=== PATIENT | female | born 1965 | race Caucasian/White ===

== ENCOUNTER → 2017-01-05 | Outpatient (CLI) | payer MEDICARE, BC ==
--- NOTE | 2017-01-08 07:46 | MM ---
Reason for exam: screening (asymptomatic). Last mammogram was performed 1 year and 3 months ago. History: Patient is postmenopausal and is nulliparous. Family history of premenopausal breast cancer in paternal aunt at age 45. Benign excisional biopsy of the right breast, December 18, 2001. Cyst aspiration of the right breast. Took estrogen for 4 years beginning at age 38. Physical Findings: A clinical breast exam by your physician is recommended on an annual basis and results should be correlated with mammographic findings. MG 3D Screening Mammo W/Cad Bilateral CC and MLO view(s) were taken. Prior study comparison: October 04, 2015, bilateral MG screening mammo w CAD. February 13, 2014, bilateral MG screening mammo w CAD. The breast tissue is almost entirely fat. There is chronic nodularity in the left breast. No significant changes when compared with prior studies. ASSESSMENT: Benign, BI-RAD 2 RECOMMENDATION: Routine screening mammogram of both breasts in 1 year.
== END | disposition home or self-care (01) ==
LOC: RADMAMWWP 14:43
PROVIDERS: ATTEND Family Medicine
DX: Z12.31 Encounter for screening mammogram for malignant neoplasm of breast (principal); Z78.0 Asymptomatic menopausal state; Z87.81 Personal history of (healed) traumatic fracture
CPT/HCPCS: 77063; G0202

== ENCOUNTER → 2018-03-11 | Outpatient (CLI) | payer MEDICARE, BC ==
[2018-03-11 13:52] LABS: Basophils # (A) 0.1 k/uL (0-0.2); Basophils % (A) 2 %; Eosinophils # (A) 0.2 k/uL (0-0.7); Eosinophils % (A) 4 %; HCT 43.6 % (34.0-46.0); Lymphocytes # (A) 2.2 k/uL (1.0-4.8); Lymphocytes % (A) 39 %; MCH 27.4 pg (25.0-35.0); MCV 85.5 fL (80.0-100.0); Mean Platelet Volume 7.1; Monocytes # (A) 0.3 k/uL (0-1.0); Monocytes % (A) 6 %; Neutrophils # (A) 2.6 k/uL (1.3-7.7); Neutrophils % (A) 48 %; Platelet Count 221 k/uL (150-450); RDW 14.4 % (11.5-15.5); WBC 5.5 k/uL (3.8-10.6)
[2018-03-11 14:09] LABS: ALT 23 U/L (9-52); AST 39 U/L (14-36); Albumin 4.5 g/dL (3.5-5.0); Alkaline Phosphatase 80 U/L (38-126); Anion Gap 11 mmol/L; Blood Urea Nitrogen 14 mg/dL (7-17); Calcium 9.6 mg/dL (8.4-10.2); Carbon Dioxide 30 mmol/L (22-30); Chloride 101 mmol/L (98-107); Glucose 92 mg/dL (74-99); HDL Cholesterol 58 mg/dL (40-60); Potassium 4.5 mmol/L (3.5-5.1); Sodium 142 mmol/L (137-145); Total Bilirubin 0.5 mg/dL (0.2-1.3); Total Protein 8.2 g/dL (6.3-8.2); Triglycerides 155 mg/dL (<150)
[2018-03-11 14:15] LABS: LDL Cholesterol,Calculated 272 mg/dL (0-99)
[2018-03-11 14:22] LABS: T4, Free (Free Thyroxine) 0.16 ng/dL (0.78-2.19)
[2018-03-11 14:30] LABS: Cholesterol 361 mg/dL (<200)
== END ==
LOC: LABWHC1 13:06
PROVIDERS: ATTEND Family Medicine
DX: Z00.00 Encounter for general adult medical examination without abnormal findings (principal); E03.9 Hypothyroidism, unspecified; E78.5 Hyperlipidemia, unspecified
CPT/HCPCS: 36415; 80053; 80061; 84439; 84443; 85025

== ENCOUNTER → 2018-04-12 | Outpatient (CLI) | payer MEDICARE, BC ==
--- NOTE | 2018-04-12 12:03 | XR ---
EXAMINATION TYPE: XR Hip Complete LT DATE OF EXAM: 04/12/2018 CLINICAL HISTORY: pain TECHNIQUE: AP and frogleg views of the left hip are obtained. COMPARISON: None. FINDINGS: There is no acute fracture/dislocation evident. The joint space appears within normal li mits. The overlying soft tissue appears unremarkable. IMPRESSION: 1. There is no acute fracture or dislocation.ICD 10 NO FRACTURE, INITIAL EVALUATION
--- NOTE | 2018-04-16 09:09 | MM ---
Reason for exam: screening (asymptomatic). Last mammogram was performed 1 year and 3 months ago. History: Patient is postmenopausal and is nulliparous. Family history of premenopausal breast cancer in paternal aunt at age 45. Benign excisional biopsy of the right breast, December 18, 2001. Cyst aspiration of the right breast. Took estrogen for 4 years beginning at age 38. Physical Findings: A clinical breast exam by your physician is recommended on an annual basis and results should be correlated with mammographic findings. MG 3D Screening Mammo W/Cad Bilateral CC and MLO view(s) were taken. Prior study comparison: January 05, 2017, bilateral MG 3d screening mammo w/cad. October 04, 2015, bilateral MG screening mammo w CAD. There are scattered fibroglandular densities. There is chronic nodularity in the left breast. No significant changes when compared with prior studies. ASSESSMENT: Negative, BI-RAD 1 RECOMMENDATION: Routine screening mammogram of both breasts in 1 year.
== END ==
LOC: RADMAMWWP 11:21
PROVIDERS: ATTEND Family Medicine
DX: Z12.31 Encounter for screening mammogram for malignant neoplasm of breast (principal); M25.552 Pain in left hip
CPT/HCPCS: 73502; 77063; 77067

== ENCOUNTER → 2018-05-08 | Outpatient (CLI) | payer MEDICARE, BC ==
--- NOTE | 2018-05-09 00:48 | MR ---
EXAMINATION TYPE: MR lumbar spine wo con DATE OF EXAM: 05/08/2018 COMPARISON: 11/04/1714 HISTORY: Back pain TECHNIQUE: Multiplanar, multisequence images of the lumbar spine were acquired. The lumbar vertebra have normal alignment. There is narrowing at L4-5 disc space. There is small post erior disc bulging at L3-4 L4-5. There is posterior left-sided L2-3 lumbar disc herniation. The neura l foramina are fairly well-maintained. There is no neural foraminal stenosis. Lumbar nerve roots appe ar normal. There is no bony spinal stenosis. There is no compression fracture. There is no lumbar par aspinal mass. Sacroiliac joints appear intact. There is mild to moderate anterior L4-5 lumbar disc he rniation. IMPRESSION: Spondylotic changes with disc bulging and herniation as above. No spinal stenosis. No fracture. No si gnificant change compared to old exam.
== END ==
LOC: RADMRIMAIN 17:20
PROVIDERS: ATTEND Family Medicine
DX: M51.26 Other intervertebral disc displacement, lumbar region (principal)
CPT/HCPCS: 72148

== ENCOUNTER 2018-08-22 11:44 | Observation (INO) | payer MEDICARE, BC ==
[2018-08-22] MEDS ORDERED: ASPIRIN 81 MG PO STA (12:05)
[2018-08-22] MEDS ORDERED: NITROGLYCERIN OINT 1 INCH/GM PACKET TOPICAL STA (12:15)
--- NOTE | 2018-08-22 12:28 | ED ---
Chest Pain HPI - General Chief Complaint: Chest Pain Stated Complaint: INDIGESTION, CHEST PRESSURE Time Seen by Provider: 08/22/18 12:05 Source: patient Mode of arrival: ambulatory Limitations: no limitations - History of Present Illness Initial Comments: 53-year-old female past no history of GERD as well as family history of coronary artery disease <AGE 50, nonsmoker presents today for chief complaint of epigastric pain with burning sensation in chest 2-3 days. Patient states that she has had indigestion however does not feel like her typical GERD symptoms. She states she is also felt mild nausea. She states she also has had on and off a pressure in her chest and tingling down her left arm. She states that she has never experienced this before. Patient denies any history of coronary artery disease she denies history of cancer, she denies hypertension or diabetes. Patient states she has never been a smoker. Patient denies any back pain she denies any dizziness or syncope. Patient denies any shortness of breath at rest. Patient states she feels she might be slightly short of breath upon exertion for the past few weeks. Patient denies any lower extremity edema, recent travel, history of DVT, and surgeries or procedures. Upon arrival patient states she still has tingling in her left arm as well as a mild chest pressure denies any severe chest pain. Upon arrival patient's vital signs within normal limits. Patient does not appear in distress. Negative Heredia sign. - Related Data Home Medications Medication Instructions Recorded Confirmed Esomeprazole Magnesium [NexIUM] 40 mg PO DAILY 08/22/18 08/22/18 Gabapentin [Neurontin] 800 mg PO BID 08/22/18 08/22/18 Imipramine HCl [Tofranil] 200 mg PO HS 08/22/18 08/22/18 Levothyroxine Sodium [Synthroid] 175 mcg PO DAILY 08/22/18 08/22/18 Propranolol HCl [Inderal LA] 60 mg PO DAILY 08/22/18 08/22/18 clonazePAM [KlonoPIN] 2 mg PO TID 08/22/18 08/22/18 Allergies Allergy/AdvReac Type Severity Reaction Status Date / Time bupropion [From Wellbutrin] Allergy Rash/Hives Verified 08/22/18 11:52 Review of Systems ROS Statement: Those systems with pertinent positive or pertinent negative responses have been documented in the HPI. ROS Other: All systems not noted in ROS Statement are negative. EKG Findings - EKG Comments: EKG Findings:: A 12-lead EKG was performed and shows the following: Rate is 77bpm, and rhythm is normal sinus. There are normal QRS complexes and normal R- wave progression. ST segments have no elevation or depression, and UT segments appear normal. UT interval 108 ms, QRS duration 82 ms, QT/QTC 384/434 ms. This is normal sinus. Nonspecific T-wave. abnormality. Interpretted by myslef and attending Dr. Sevilla. repeat EKG: No significant change in comparison with first obtained 13:43. Ventricular rate 79 bpm, P1 174 ms, QRS duration 92 ms, QT/QTc 412/[address] segment elevation or depression. Nonspecific T-wave. Past Medical History Past Medical History: Thyroid Disorder History of Any Multi-Drug Resistant Organisms: None Reported Past Surgical History: Cholecystectomy, Hysterectomy, Tonsillectomy Past Psychological History: Anxiety, Bipolar Smoking Status: Never smoker Past Alcohol Use History: None Reported Past Drug Use History: None Reported General Exam - General Exam Comments Initial Comments: General: The patient is awake and alert, in no distress. No Heredia sign Eye: +3 mm pupils are equal, round and reactive to light, extra-ocular movements are intact. No nystagmus. There is normal conjunctiva bilaterally. No signs of icterus. Ears, nose, mouth and throat: There are moist mucous membranes and no oral lesions. Neck: The neck is supple, there is no tenderness or JVD. Cardiovascular: There is a regular rate and rhythm. No murmur, rub or gallop is appreciated. Respiratory: Lungs are clear to auscultation, respirations are non-labored, breath sounds are equal. No wheezes, stridor, rales, or rhonchi. Lung sounds present in all perez. Gastrointestinal: Soft, non-distended, non-tender abdomen without masses or organomegaly noted. There is no rebound or guarding present. No CVA tenderness. Bowel sounds are unremarkable. Musculoskeletal: Normal ROM, no tenderness. Strength 5/5. Sensation intact. DP pulses equal bilaterally 2+. Neurological: A&O x 3. CN II-XII intact, There are no obvious motor or sensory deficits. Coordination appears grossly intact. Speech is normal. Skin: Skin is warm and dry and no rashes or lesions are noted. No lower extremity edema. No pain or patient the deep venous system. Negative [place]. Psychiatric: Cooperative, appropriate mood & affect, normal judgment. Limitations: no limitations Course Vital Signs 08/22/18 08/22/18 08/22/18 11:52 12:28 12:30 Temperature 97.4 F L Pulse Rate 80 79 79 Respiratory 18 Rate Blood Pressure 115/73 101/75 O2 Sat by Pulse 99 98 100 Oximetry 08/22/18 08/22/18 08/22/18 12:40 12:50 13:00 Temperature Pulse Rate 72 78 Respiratory Rate Blood Pressure 103/70 110/68 110/68 O2 Sat by Pulse 98 100 Oximetry 08/22/18 08/22/18 08/22/18 13:10 13:20 13:30 Temperature Pulse Rate 77 78 79 Respiratory 18 Rate Blood Pressure 107/74 105/70 105/70 O2 Sat by Pulse 100 Oximetry 08/22/18 08/22/18 08/22/18 13:40 13:50 14:00 Temperature Pulse Rate 75 84 80 Respiratory Rate Blood Pressure 110/61 109/73 109/73 O2 Sat by Pulse Oximetry 08/22/18 08/22/18 08/22/18 14:10 14:20 14:30 Temperature 97.4 F L Pulse Rate 80 77 76 Respiratory 18 Rate Blood Pressure 111/73 109/70 109/70 O2 Sat by Pulse 100 Oximetry 08/22/18 08/22/18 14:40 14:50 Temperature Pulse Rate 78 78 Respiratory Rate Blood Pressure 103/58 118/77 O2 Sat by Pulse Oximetry - Reevaluation(s) Reevaluation #1: Patient was evaluated at by provider, myself. I located EKG machine for staff. At this time and had not been performed. Ordered ASA 324 chew. Pt does not need oxygen at this time given normal saturation. Pt will have nitro paste applied to chest for pressure. 08/22/18 12:12 Chest Pain [facility] - Differential Diagnosis ACS, PE, Pericarditis, Pneumonia - [facility] 53-year-old female presenting today for chief complaint of chest tightness left upper kidney paresthesia, and indigestion. Patient's history concerning for acute coronary syndrome. Pt well score 0. Chest x-ray revealed no acute abnormalities. Initial troponin negative. Patient history as well as family history for coronary artery disease in persons less than 30, concerning for possible ACS. At this time at rest patient symptoms persist concerning for unstable angina. We started on low-dose heparin admitted for serial troponin as well as cardiology evaluation. Case discussed in detail Dr. Sevilla revealed EKG at his time there is no concerning T-wave inversion, ST elevation or depression. 35 minutes of critical care time was spent with patient including interpretting EKG, obtaining history, physical examination and reevaluation, discussing case with her provider, discussing case the admitting provider, reviewing radiographic imaging. Patient's vital signs are main stable throughout duration emergency department. Patient case was discussed in detail with the admitting provider by Dr. Sevilla. Patient transferred to the floor in stable condition appearing well aware of all results, patient is agreeable to admission. Critical Care Time Critical Care Time: Yes (history, repeat exams, EKG interpretation, discussing with attending/admit) Total Critical Care Time: 35 Disposition Clinical Impression: Unstable angina Disposition: ADMITTED IP TO THIS [facility] Condition: Stable Is patient prescribed a controlled substance at d/c from ED?: No Time of Disposition: 14:47 Decision to Admit Reason: Admit from EC Decision Date: 08/22/18 Decision Time: 03:15
[2018-08-22 12:30] LABS: Basophils % (A) 1 %; Eosinophils # (A) 0.2 k/uL (0-0.7); Eosinophils % (A) 3 %; HCT 38.8 % (34.0-46.0); Lymphocytes % (A) 32 %; MCH 28.3 pg (25.0-35.0); MCHC 33.5 g/dL (31.0-37.0); MCV 84.3 fL (80.0-100.0); Mean Platelet Volume 6.8; Monocytes # (A) 0.4 k/uL (0-1.0); Monocytes % (A) 7 %; Neutrophils # (A) 3.5 k/uL (1.3-7.7); Neutrophils % (A) 56 %; Platelet Count 225 k/uL (150-450); RDW 13.2 % (11.5-15.5); WBC 6.3 k/uL (3.8-10.6)
[2018-08-22 12:45] LABS: ALT 53 U/L (9-52); AST 112 U/L (14-36); Albumin 4.1 g/dL (3.5-5.0); Alkaline Phosphatase 109 U/L (38-126); Anion Gap 8 mmol/L; Blood Urea Nitrogen 17 mg/dL (7-17); Calcium 9.5 mg/dL (8.4-10.2); Carbon Dioxide 29 mmol/L (22-30); Chloride 101 mmol/L (98-107); Glucose 102 mg/dL (74-99); Magnesium 1.7 mg/dL (1.6-2.3); Potassium 4.6 mmol/L (3.5-5.1); Sodium 138 mmol/L (137-145); Total Bilirubin 0.5 mg/dL (0.2-1.3); Total Protein 7.3 g/dL (6.3-8.2)
--- NOTE | 2018-08-22 12:51 | XR ---
EXAMINATION TYPE: XR chest 2V DATE OF EXAM: 08/22/2018 COMPARISON: NONE HISTORY: Chest pain TECHNIQUE: Frontal and lateral views of the chest are obtained. FINDINGS: Platelike left basilar atelectasis and slight right hemidiaphragm elevation are seen with low lung volumes. There is no focal air space opacity, pleural effusion, or pneumothorax seen. The c ardiac silhouette size is within normal limits. The osseous structures are intact. Surgical clips a re seen within the gallbladder fossa. IMPRESSION: Hypoventilatory lungs with left basilar subsegmental atelectasis.
[2018-08-22 12:59] LABS: INR 0.9 (<1.2); Partial Thromboplastin Time 24.4 sec (22.0-30.0); Prothrombin Time 9.6 sec (9.0-12.0)
[2018-08-22] MEDS ORDERED: NITROGLYCERIN SL TABS 0.4 MG TAB SUBLINGUAL PRN (13:36)
[2018-08-22] MEDS ORDERED: HEPARIN SODIUM,PORCINE 5,000 UNIT/ML 1 ML VIAL IV ONE (14:03)
[2018-08-22] MEDS ORDERED: HEPARIN SODIUM,PORCINE 5,000 UNIT/ML 1 ML VIAL IV PRN (14:03)
[2018-08-22] MEDS ORDERED: HEPARIN SOD,PORK IN 0.45% NACL 25,000 UNIT in 0.45% NACL 1 250ML.BAG IV SCH (14:15)
[2018-08-22] MEDS ORDERED: MAG HYDROX/AL HYDROX/SIMETH 30 ML, HYOSCYAMINE ELIXIR 10 ML, CIMETIDINE HCL 300 MG, LID... PO ONE ×4 (15:16)
--- NOTE | 2018-08-22 15:27 | P.HPIM ---
History of Present Illness H&P Date: 08/22/18 Chief Complaint: Chest pain The patient is a 53-year-old female a past medical history of GERD with hiatal hernia, hypothyroidism, dyslipidemia currently not on medication due to GI upset who presents to the ER via private vehicle with chief complaint of chest pain. Apparently the patient has been having intermittent episodes of a moderate chest pressure described as someone sitting on his chest over the last 3 days, with associated nausea. The patient reports her discomfort is not related to exertion and that there is occasional radiation into her back and her left upper arm with noted numbness and tingling. She denies any history of smoking, denies history of hypertension, she denies any blurry vision, focal weakness, slurred speech. She reports that symptoms today have been different from her typical acid reflux symptoms. She denies any lightheadedness, palpitations or lower extremity swelling,and denies any shortness of breath. The patient denies having any first degree relatives with coronary disease. In the ER the patient was noted to be normotensive, EKG was negative for any suggestive of acute ischemia, troponin was negative at less than 0.012. Chest x-ray indicated hypoventilatory lungs with left basilar subsegmental atelectasis. Patient was given aspirin and nitroglycerin and started heparin drip and recommended for admission to rule out ACS Review of Systems Pertinent positives per HPI all other ROS are negative except as specified Past Medical History Past Medical History: Thyroid Disorder History of Any Multi-Drug Resistant Organisms: None Reported Past Surgical History: Cholecystectomy, Hysterectomy, Tonsillectomy Past Psychological History: Anxiety, Bipolar Smoking Status: Never smoker Past Alcohol Use History: None Reported Past Drug Use History: None Reported Medications and Allergies Home Medications Medication Instructions Recorded Confirmed Type Esomeprazole Magnesium [NexIUM] 40 mg PO DAILY 08/22/18 08/22/18 History Gabapentin [Neurontin] 800 mg PO BID 08/22/18 08/22/18 History Imipramine HCl [Tofranil] 200 mg PO HS 08/22/18 08/22/18 History Levothyroxine Sodium [Synthroid] 175 mcg PO DAILY 08/22/18 08/22/18 History Propranolol HCl [Inderal LA] 60 mg PO DAILY 08/22/18 08/22/18 History clonazePAM [KlonoPIN] 2 mg PO TID 08/22/18 08/22/18 History Allergies Allergy/AdvReac Type Severity Reaction Status Date / Time bupropion [From Wellbutrin] Allergy Rash/Hives Verified 08/22/18 11:52 Physical Exam Vitals: Vital Signs Temp Pulse Resp BP Pulse Ox 08/22/18 14:50 78 118/77 08/22/18 14:40 78 103/58 08/22/18 14:30 97.4 F L 76 18 109/70 100 08/22/18 14:20 77 109/70 08/22/18 14:10 80 111/73 08/22/18 14:00 80 109/73 08/22/18 13:50 84 109/73 08/22/18 13:40 75 110/61 08/22/18 13:30 79 105/70 08/22/18 13:20 78 105/70 08/22/18 13:10 77 18 107/74 100 08/22/18 13:00 78 110/68 08/22/18 12:50 110/68 100 08/22/18 12:40 72 103/70 98 08/22/18 12:30 79 101/75 100 08/22/18 12:28 79 98 08/22/18 11:52 97.4 F L 80 18 115/73 99 Intake and Output 08/22/18 08/22/18 08/22/18 06:59 14:59 22:59 Other: Weight 72.575 kg Constitutional: No acute distress, conversant, pleasant Eyes: Anicteric sclerae, moist conjunctiva, no lid-lag, PERRLA ENMT: NC/AT,Oropharynx clear, no erythema, exudates Neck:Supple, FROM, no masses, or JVD, No carotid bruits; No thyromegaly Lungs: Clear to auscultation, Clear to percussion, Normal respiratory effort, no accessory muscle use Cardiovascular: Heart regular in rate and rhythm, No murmurs, gallops, or rubs no peripheral edema Abdominal: Soft Nontender, nom distended, no guarding, no rebound or rigidity, Normoactive bowel sounds No hepatomegaly, No splenomegaly, No palpable mass No abdominal wall hernia noted Skin: Normal temperature, tone, texture, turgor, No induration No subcutaneous nodules, No rash, lesions, No ulcers Extremities:No digital cyanosis No clubbing, Pedal pulses intact and symmetrical Radial pulses intact and symmetrical Normal gait and station, No calf tenderness Psychiatric: Alert and oriented to person, place and time, Appropriate affect Intact judgement Neuro: Muscles Strength 5/5 in all 4 extremities, Sensation to light touch grossly present throughout, Cranial nerves II-XII grossly intact. No focal sensory deficits Results CBC & Chem 7: 08/22/18 12:15 08/22/18 12:15 Labs: Abnormal Lab Results - Last 24 Hours (Table) 08/22/18 Range/Units 12:15 Glucose 102 H (74-99) mg/dL AST 112 H (14-36) U/L ALT 53 H (9-52) U/L Assessment and Plan (1) Atypical chest pain Current Visit: Yes Status: Acute Code(s): R07.89 - OTHER CHEST PAIN SNOMED Code(s): 298307926 (2) Hyperlipidemia Current Visit: Yes Status: Acute Code(s): E78.5 - HYPERLIPIDEMIA, UNS PECIFIED SNOMED Code(s): 07929966 (3) GERD (gastroesophageal reflux disease) Current Visit: Yes Status: Acute Code(s): K21.9 - GASTRO-ESOPHAGEAL REFLUX DISEASE WITHOUT ESOPHAGITIS SNOMED Code(s): 874476771 (4) Hypothyroidism Current Visit: Yes Status: Acute Code(s): E03.9 - HYPOTHYROIDISM, UNSPECIFIED SNOMED Code(s): 87580553 Plan: Patient is placed in observation anticipate a less than 2 midnight stay with atypical chest pain receptors for coronary disease include age and history of hyperlipidemia, patient is currently hemodynamically stable. Workup with EKG and troponins have been negative so far we'll continue to cycle troponins, will order TSH 2-D echocardiogram and consult cardiology. The patient will be resumed on PPI therapy for GERD resumed on her levothyroxine for her thyroid. We'll continue to follow her course CODE STATUS Full code Anticipated discharge: 1-2 days
[2018-08-22] MEDS: clonazePAM 1 MG TAB PO SCH ×2 (16:51→21:08)
[2018-08-22] MEDS ORDERED: IMIPRAMINE 25 MG TAB PO SCH (21:00)
[2018-08-22] MEDS: GABAPENTIN 400 MG CAP PO SCH (21:08)
[2018-08-22 22:11] LABS: T4, Free (Free Thyroxine) 1.99 ng/dL (0.78-2.19)
[2018-08-23] MEDS ORDERED: LEVOTHYROXINE 100 MCG TAB PO SCH (06:30)
[2018-08-23] MEDS ORDERED: LEVOTHYROXINE 75 MCG TAB PO SCH (06:30)
[2018-08-23 07:10] LABS: Basophils # (A) 0.1 k/uL (0-0.2); Basophils % (A) 1 %; Eosinophils # (A) 0.2 k/uL (0-0.7); Eosinophils % (A) 3 %; HCT 38.1 % (34.0-46.0); HGB 12.2 gm/dL (11.4-16.0); Lymphocytes # (A) 1.5 k/uL (1.0-4.8); Lymphocytes % (A) 24 %; MCH 27.2 pg (25.0-35.0); MCHC 31.9 g/dL (31.0-37.0); MCV 85.3 fL (80.0-100.0); Mean Platelet Volume 7.1; Monocytes # (A) 0.4 k/uL (0-1.0); Monocytes % (A) 7 %; Neutrophils # (A) 3.9 k/uL (1.3-7.7); Neutrophils % (A) 64 %; Platelet Count 197 k/uL (150-450); RBC 4.47 m/uL (3.80-5.40); RDW 13.3 % (11.5-15.5); WBC 6.1 k/uL (3.8-10.6)
--- NOTE | 2018-08-23 07:16 | P.CRDCN ---
History of Present Illness Consult date: 08/23/18 Chief complaint: Chest pain History of present illness: This is a pleasant 53-year-old female patient with past medical history significant for dyslipidemia and history of reflux disease presented to the hospital complaining of chest discomfort. For the last few days, she has been experiencing chest discomfort, in the mid of the chest, as a squeezing sensation, without any radiation to the arm or neck or shoulders and without any associated symptoms of shortness of breath, sweating, but she has been experiencing some nausea feeling. The chest discomfort according to her is not exertional related. Its of variable duration. The EKG showed sinus rhythm without any acute or ischemic changes. 3 sets of enzymes were checked and came in to be unremarkable. The chest x-ray did not show any acute abnormalities. The patient is not aware of any history of coronary artery disease, diabetes, or hypertension. She stated that she does have dyslipidemia and she was started on medications in the past she stopped the medication because it did bother her stomach. She did undergo multiple noncardiac surgery including tonsillectomy, hysterectomy, and gallbladder. The patient does not smoke and does not drink alcohol. There is no significant family history of premature coronary artery disease. Past Medical History Past Medical History: Thyroid Disorder Additional Past Medical History / Comment(s): Hypothyroid, colitis. History of Any Multi-Drug Resistant Organisms: None Reported Past Surgical History: Cholecystectomy, Hysterectomy, Tonsillectomy Additional Past Surgical History / Comment(s): Colonoscopies Additional Past Anesthesia/Blood Transfusion Reaction / Comment(s): Pt states she had a grand mal seizure in recovery room after her cholecystectomy Past Psychological History: Anxiety, Bipolar Smoking Status: Never smoker Past Alcohol Use History: None Reported Past Drug Use History: None Reported - Past Family History Mother Family Medical History: Hyperlipidemia Additional Family Medical History / Comment(s): Mother has heart problems. Father Family Medical History: Hypertension Medications and Allergies Home Medications Medication Instructions Recorded Confirmed Type Esomeprazole Magnesium [NexIUM] 40 mg PO DAILY 08/22/18 08/22/18 History Gabapentin [Neurontin] 800 mg PO BID 08/22/18 08/22/18 History Imipramine HCl [Tofranil] 200 mg PO HS 08/22/18 08/22/18 History Levothyroxine Sodium [Synthroid] 175 mcg PO DAILY 08/22/18 08/22/18 History Propranolol HCl [Inderal LA] 60 mg PO DAILY 08/22/18 08/22/18 History clonazePAM [KlonoPIN] 2 mg PO TID 08/22/18 08/22/18 History Allergies Allergy/AdvReac Type Severity Reaction Status Date / Time bupropion [From Wellbutrin] Allergy Rash/Hives Verified 08/22/18 11:52 Physical Exam Vitals: Vital Signs Temp Pulse Pulse Resp BP BP Pulse Ox 08/23/18 03:50 77 16 08/23/18 03:34 98.4 F 77 16 94/59 95 08/22/18 23:59 79 15 08/22/18 23:21 98.0 F 79 15 96/56 97 08/22/18 20:00 75 15 08/22/18 18:52 97.8 F 75 15 89/53 97 08/22/18 16:30 98 08/22/18 15:20 97.7 F 76 18 111/74 97 08/22/18 14:50 78 118/77 08/22/18 14:40 78 103/58 08/22/18 14:30 97.4 F L 76 18 109/70 100 08/22/18 14:20 77 109/70 08/22/18 14:10 80 111/73 08/22/18 14:00 80 109/73 08/22/18 13:50 84 109/73 08/22/18 13:40 75 110/61 08/22/18 13:30 79 105/70 08/22/18 13:20 78 105/70 08/22/18 13:10 77 18 107/74 100 08/22/18 13:00 78 110/68 08/22/18 12:50 110/68 100 08/22/18 12:40 72 103/70 98 08/22/18 12:30 79 101/75 100 08/22/18 12:28 79 98 08/22/18 11:52 97.4 F L 80 18 115/73 99 Intake and Output 08/22/18 08/23/18 08/23/18 22:59 06:59 14:59 Intake Total 100 Balance 100 Intake: Oral 100 Other: Voiding Method Toilet Toilet # Voids 1 2 - Constitutional General appearance: no acute distress - Respiratory Respiratory: - Cardiovascular Rhythm: regular Results 08/22/18 12:15 08/22/18 12:15 Cardiac Enzymes 08/22/18 08/22/18 08/22/18 Range/Units 12:15 12:15 18:38 AST 112 H (14-36) U/L Troponin I <0.012 <0.012 (0.000-0.034) ng/mL 08/22/18 Range/Units 23:24 AST (14-36) U/L Troponin I <0.012 (0.000-0.034) ng/mL Coagulation 08/22/18 Range/Units 12:15 PT 9.6 (9.0-12.0) sec APTT 24.4 (22.0-30.0) sec CBC 08/22/18 Range/Units 12:15 WBC 6.3 (3.8-10.6) k/uL RBC 4.60 (3.80-5.40) m/uL Hgb 13.0 (11.4-16.0) gm/dL Hct 38.8 (34.0-46.0) % Plt Count 225 (150-450) k/uL Comprehensive Metabolic Panel 08/22/18 Range/Units 12:15 Sodium 138 (137-145) mmol/L Potassium 4.6 (3.5-5.1) mmol/L Chloride 101 (98-107) mmol/L Carbon Dioxide 29 (22-30) mmol/L BUN 17 (7-17) mg/dL Creatinine 0.84 (0.52-1.04) mg/dL Glucose 102 H (74-99) mg/dL Calcium 9.5 (8.4-10.2) mg/dL AST 112 H (14-36) U/L ALT 53 H (9-52) U/L Alkaline Phosphatase 109 (38-126) U/L Total Protein 7.3 (6.3-8.2) g/dL Albumin 4.1 (3.5-5.0) g/dL Current Medications Generic Name Dose Route Start Last Admin Trade Name Freq PRN Reason Stop Dose Admin Aspirin 325 mg 08/23/18 09:00 Aspirin PO DAILY SARA Clonazepam 2 mg 08/22/18 16:00 08/22/18 21:08 Klonopin PO 2 mg TID SARA Administration Gabapentin 800 mg 08/22/18 21:00 08/22/18 21:08 Neurontin PO 800 mg BID SARA Administration Heparin Sodium (Porcine) 0 unit 08/22/18 14:03 Heparin IV PER PROTOCOL PRN Low PTT Protocol Imipramine HCl 200 mg 08/22/18 21:00 08/22/18 21:08 Tofranil PO 200 mg HS SARA Administration Levothyroxine Sodium 100 mcg 08/23/18 06:30 08/23/18 06:20 Synthroid PO 100 mcg DAILY@0630 SARA Administration Levothyroxine Sodium 75 mcg 08/23/18 06:30 08/23/18 06:20 Synthroid PO 75 mcg DAILY@0630 SARA Administration Nitroglycerin 0.4 mg 08/22/18 13:36 Nitrostat SUBLINGUAL Q5M PRN Chest Pain Pantoprazole Sodium 40 mg 08/23/18 07:30 Protonix PO AC-BRKFST SARA Propranolol HCl 60 mg 08/23/18 09:00 Inderal La PO DAILY SARA Intake and Output 08/22/18 08/23/18 08/23/18 22:59 06:59 14:59 Intake Total 100 Balance 100 Intake: Oral 100 Other: Voiding Method Toilet Toilet # Voids 1 2 08/22/18 12:15 08/22/18 12:15 Assessment and Plan Assessment: Assessment #1 intermittent episodes of atypical chest discomfort Plan #1 acute coronary event was ruled out. The cardiac enzymes are unremarkable and the EKG showed no ischemic changes #2 severe underlying coronary artery disease to be ruled out. The probe with the of severe CAD is low giving her age and the absence of risk factors #3 I did recommend proceeding with a stress test. The patient expressed the wishes that she would like to go home. #4 I am getting the patient up and around and if she is chest pain-free she might be able to go home and I will follow-up with her in the office in a few days for stress test as an outpatient. Thank you for allowing us participate in her care.
[2018-08-23 07:29] LABS: Cholesterol 219 mg/dL (<200); HDL Cholesterol 46 mg/dL (40-60); LDL Cholesterol,Calculated 142 mg/dL (0-99); Triglycerides 156 mg/dL (<150)
[2018-08-23] MEDS ORDERED: PANTOPRAZOLE 40 MG TABLET PO SCH (07:30)
[2018-08-23 07:33] VITALS: BP 100/67; PULSE 90; RESP 18; TEMP 98.1
[2018-08-23] MEDS ORDERED: ASPIRIN 325 MG TAB PO SCH (09:00)
[2018-08-23] MEDS ORDERED: PROPRANOLOL LA 60 MG CAP.SA.24H PO SCH (09:00)
--- NOTE | 2018-08-23 09:00 | ECHOF ---
Referral Reason:chest pain MEASUREMENTS -------- HEIGHT: 162.6 cm WEIGHT: 72.6 kg BP: 118/77 RVIDd: 2.4 cm (< 3.3) IVSd: 0.9 cm (0.6 - 1.1) LVIDd: 3.2 cm (3.9 - 5.3) LVPWd: 0.9 cm (0.6 - 1.1) IVSs: 1.4 cm LVIDs: 2.3 cm LVPWs: 1.2 cm LA Diam: 3.3 cm (2.7 - 3.8) LAESV Index (A-L): 26.66 ml/m Ao Diam: 2.8 cm (2.0 - 3.7) AV Cusp: 2.0 cm (1.5 - 2.6) MV EXCURSION: 16.920 mm (> 18.000) MV EF SLOPE: 86 mm/s (70 - 150) EPSS: 0.5 cm MV E Cristian: 0.64 m/s MV DecT: 189 ms MV A Cristian: 0.62 m/s MV E/A Ratio: 1.04 FINDINGS -------- Sinus rhythm. This was a technically good study. The left ventricular size is normal. Left ventricular wall thickness is normal. Overall left vent ricular systolic function is normal with, an EF between 60 - 65 %. The right ventricle is normal in size. Normal LA size by volume 22+/-6 ml/m2. The right atrium is normal in size. The aortic valve is trileaflet and appears structurally normal. The mitral valve is normal. The tricuspid valve appears structurally normal. Trace/mild (physiologic) pulmonic regurgitation. The aortic root size is normal. IVC Not well visulized. There is no pericardial effusion. CONCLUSIONS -------- 1. Sinus rhythm. 2. This was a technically good study. 3. The left ventricular size is normal. 4. Left ventricular wall thickness is normal. 5. Overall left ventricular systolic function is normal with, an EF between 60 - 65 %. 6. The right ventricle is normal in size. 7. Normal LA size by volume 22+/-6 ml/m2. 8. The right atrium is normal in size. 9. The aortic valve is trileaflet and appears structurally normal. 10. The mitral valve is normal. 11. The tricuspid valve appears structurally normal. 12. Trace/mild (physiologic) pulmonic regurgitation. 13. The aortic root size is normal. 14. IVC Not well visulized. 15. There is no pericardial effusion. INSPECTOR CASING: Sahra Shah RDCS
[2018-08-23] MEDS: GABAPENTIN 400 MG CAP PO SCH (09:08)
[2018-08-23] MEDS: clonazePAM 1 MG TAB PO SCH (09:08)
--- NOTE | 2018-08-23 10:23 | P.DS ---
Providers Date of admission: 08/22/18 13:53 Expected date of discharge: 08/23/18 Attending physician: Lisbet Layne DO Consults: 08/22/18 13:36 Consult Physician Urgent Consulting Provider: Zenobia Calero Consult Reason/Comments: chest pain Do you want consulting provider notified?: Yes Primary care physician: Kaila Hernandez MD - Discharge Diagnosis(es) (1) Atypical chest pain Current Visit: Yes Status: Acute (2) Hyperlipidemia Current Visit: Yes Status: Acute (3) GERD (gastroesophageal reflux disease) Current Visit: Yes Status: Acute (4) Hypothyroidism Current Visit: Yes Status: Acute Hospital Course: The patient is a 53-year-old female that was admitted for atypical chest pain to rule out ACS, the patient had minimal risk factors for coronary artery disease including age and history of hyperlipidemia, her initial EKG was negative for any sedation of acute ischemia her initial and subsequent troponins were all negative. Cardiology was also consulted to see the patient and recommended outpatient stress test. It was thought that the patient's chest di scomfort was secondary to underlying and ongoing acid reflux disease in the patient's Nexium was changed to twice a day and she was also started on Pepcid for treatment. She was subsequently discharged home in stable condition and recommended to follow-up with her PCP Dr. Hernandez. This discharge process took approximately 30 minutes Focused exam Cv: Regular rate and rhythm no murmurs or gallops, PMI nondisplaced Pertinent Studies: 2-D echocardiogram showing preserved ejection fraction of 60-65%. Patient Condition at Discharge: Stable Plan - Discharge Summary Discharge Rx Participant: No New Discharge Prescriptions: New Famotidine [Pepcid] 20 mg PO DAILY #30 tablet Continue RX: clonazePAM [KlonoPIN] 2 mg PO TID RX: Propranolol HCl [Inderal LA] 60 mg PO DAILY RX: Levothyroxine Sodium [Synthroid] 175 mcg PO DAILY RX: Imipramine HCl [Tofranil] 200 mg PO HS RX: Gabapentin [Neurontin] 800 mg PO BID Changed RX: Esomeprazole Magnesium [NexIUM] 40 mg PO BID #0 Discharge Medication List RX: Gabapentin [Neurontin] 800 mg PO BID 08/22/18 [History] RX: Imipramine HCl [Tofranil] 200 mg PO HS 08/22/18 [History] RX: Levothyroxine Sodium [Synthroid] 175 mcg PO DAILY 08/22/18 [History] RX: Propranolol HCl [Inderal LA] 60 mg PO DAILY 08/22/18 [History] RX: clonazePAM [KlonoPIN] 2 mg PO TID 08/22/18 [History] Famotidine [Pepcid] 20 mg PO DAILY #30 tablet 08/23/18 [Rx] RX: Esomeprazole Magnesium [NexIUM] 40 mg PO BID #0 08/23/18 [Rx] Follow up Appointment(s)/Referral(s): Mango Machado MD [STAFF PHYSICIAN] - 1 Week Kaila Hernandez MD [Primary Care Provider] - 1-2 days Patient Instructions/Handouts: Heart Healthy Diet (DC), Cholesterol and Your Health (GEN), Lipid Profile (GEN), Mediterranean Diet (DC) Discharge Disposition: HOME SELF-CARE
== END 2018-08-23 10:40 | disposition home or self-care (01) ==
LOC: EC 11:44 → 1SOBS 13:53
PROVIDERS: ADMIT Internal Medicine; ATTEND Internal Medicine
DX: K21.9 Gastro-esophageal reflux disease without esophagitis (principal); K44.9 Diaphragmatic hernia without obstruction or gangrene; G40.409 Other generalized epilepsy and epileptic syndromes, not intractable, without status epilepticus; R07.89 Other chest pain; E03.9 Hypothyroidism, unspecified; E78.5 Hyperlipidemia, unspecified; F31.9 Bipolar disorder, unspecified; K52.9 Noninfective gastroenteritis and colitis, unspecified; F41.9 Anxiety disorder, unspecified; Z79.890 Hormone replacement therapy; Z79.899 Other long term (current) drug therapy; Z88.8 Allergy status to other drugs, medicaments and biological substances; Z90.710 Acquired absence of both cervix and uterus; Z90.49 Acquired absence of other specified parts of digestive tract; Z82.49 Family history of ischemic heart disease and other diseases of the circulatory system
CPT/HCPCS: 99291; 36415; 94760; 93005; 93306; 84439; 80061; 80053; 84443; 83735; 84484; 85025 ×2; 85610; 85730; 71046; G0378 ×2

== ENCOUNTER → 2018-09-25 | Outpatient (CLI) | payer MEDICARE, BC ==
[~2018-09-25] MED LIST: REGADENOSON 0.4 MG/5 ML SYRINGE IV ONE
--- NOTE | 2018-09-25 12:21 | NM ---
EXAMINATION TYPE: NM stress lexiscan cardiolite DATE OF EXAM: 09/25/2018 COMPARISON: NONE HISTORY: Atypical chest pain TECHNIQUE: After the intravenous administration of 10.13 mCi Tc 99m Sestamibi - Cardiolite resting S PECT images acquired 45 minutes post injection. The patient received 0.4mg Lexiscan, 26.2 mCi Tc 99m Sestamibi - Stress images obtained [address] injection FINDINGS: Review of stress and rest SPECT images demonstrates no distinct perfusion abnormality. Gated analysi s shows normal wall motion with an estimated left ventricular ejection fraction of 66 %. TID is withi n normal limits of fluid at 1.07 IMPRESSION: No scintigraphic evidence for reversible ischemia.
--- NOTE | 2018-09-25 12:26 | EST ---
EXERCISE STRESS DATE OF SERVICE: 09/25/2018 AGE: 53 SEX: Female HT: 5'4" WT: 166 pounds PROTOCOL: Lexiscan Cardiolite STAGE: DURATION OF EXERCISE: HEART RATE REST: 88 BLOOD PRESSURE REST: 111/80 MAXIMUM HEART RATE ACHIEVED: 91 MAXIMUM BLOOD PRESSURE: 119/76 85% MPHR: 140 100% MPHR: 165 METS: INDICATIONS: Chest pain. CLINICAL INFORMATION: Lexiscan nuclear study was performed because the patient developed intermittent left bundle branch block pattern. Lexiscan was given over a period of 15 seconds. The peak heart rate of 91 was achieved. Maximum blood pressure 119/76 mmHg was noted. Resting EKG shows normal sinus rhythm alternating with normal conduction and left bundle branch block pattern. During Lexiscan injection, left bundle branch block pattern was noted. No significant ST-segment change from the baseline was noted. FINAL IMPRESSION: This EKG is inconclusive to diagnose ischemia because of the left bundle branch block pattern. The results of the nuclear study will follow. MMJONO / JOSHN: [id number] /
== END ==
LOC: RADNMMAIN 08:03
PROVIDERS: ATTEND Family Medicine
DX: R07.89 Other chest pain (principal)
CPT/HCPCS: 93017; 78452; A9500; J2785

== ENCOUNTER → 2018-10-11 | Outpatient (CLI) | payer MEDICARE, BC | END | disposition home or self-care (01) | LOC: LABWHC1 11:55 | PROVIDERS: ATTEND Psychiatry & Neurology Neurology | DX: R53.1 Weakness (principal) | CPT/HCPCS: 36415; 82550; 85652; 86038 ==

== ENCOUNTER → 2018-10-23 | Outpatient (CLI) | payer MEDICARE, BC | END | disposition home or self-care (01) | LOC: CPPFTMAIN 10:51 | PROVIDERS: ATTEND Family Medicine | DX: J45.909 Unspecified asthma, uncomplicated (principal); G70.00 Myasthenia gravis without (acute) exacerbation | CPT/HCPCS: 94060; 94726; 94729 ==

== ENCOUNTER → 2019-03-28 | Outpatient (CLI) | payer MEDICARE, BC ==
--- NOTE | 2019-03-28 09:05 | XR ---
EXAMINATION TYPE: XR hand complete RT DATE OF EXAM: 03/28/2019 CLINICAL HISTORY: Right hand pain for one week. TECHNIQUE: Frontal, lateral and oblique images of the right hand are obtained. COMPARISON: None. FINDINGS: There is no acute fracture/dislocation evident in the right hand. The joint spaces in the right hand appear within normal limits. The overlying soft tissue appears unremarkable. IMPRESSION: As above.
== END | disposition home or self-care (01) ==
LOC: RADXRMAIN 08:48
PROVIDERS: ATTEND Internal Medicine
DX: M25.541 Pain in joints of right hand (principal)

== ENCOUNTER → 2019-07-28 | Outpatient (CLI) | payer MEDICARE, BC ==
[2019-07-28 11:45] LABS: Albumin 4.3 g/dL (3.5-5.0); Calcium 9.5 mg/dL (8.4-10.2); Potassium 4.8 mmol/L (3.5-5.1); Total Bilirubin 0.4 mg/dL (0.2-1.3); Total Protein 7.6 g/dL (6.3-8.2)
[2019-07-28 12:26] LABS: Basophils # (A) 0.2 k/uL (0-0.2); Basophils % (A) 3 %; Eosinophils # (A) 0.3 k/uL (0-0.7); Eosinophils % (A) 4 %; HCT 42.6 % (34.0-46.0); HGB 13.8 gm/dL (11.4-16.0); Lymphocytes # (A) 1.8 k/uL (1.0-4.8); Lymphocytes % (A) 28 %; MCH 27.6 pg (25.0-35.0); MCHC 32.3 g/dL (31.0-37.0); MCV 85.4 fL (80.0-100.0); Mean Platelet Volume 9.7; Monocytes # (A) 0.5 k/uL (0-1.0); Monocytes % (A) 7 %; Neutrophils # (A) 3.6 k/uL (1.3-7.7); Neutrophils % (A) 56 %; Platelet Count 208 k/uL (150-450); RBC 4.99 m/uL (3.80-5.40); RDW 13.4 % (11.5-15.5); WBC 6.4 k/uL (3.8-10.6)
[2019-07-28 12:51] LABS: T4, Free (Free Thyroxine) 1.34 ng/dL (0.78-2.19)
--- NOTE | 2019-07-28 14:42 | MM ---
Reason for exam: screening (asymptomatic). Last mammogram was performed 1 year and 3 months ago. History: Patient is postmenopausal and is nulliparous. Family history of premenopausal breast cancer in paternal aunt at age 45. Benign excisional biopsy of the right breast, December 18, 2001. Cyst aspiration of the right breast. Took estrogen for 4 years beginning at age 38. Physical Findings: A clinical breast exam by your physician is recommended on an annual basis and results should be correlated with mammographic findings. MG 3D Screening Mammo W/Cad Bilateral CC and MLO view(s) were taken. Prior study comparison: April 12, 2018, bilateral MG 3d screening mammo w/cad. January 05, 2017, bilateral MG 3d screening mammo w/cad. There are scattered fibroglandular densities. No suspicious abnormality. No significant changes when compared with prior studies. ASSESSMENT: Negative, BI-RAD 1 RECOMMENDATION: Routine screening mammogram of both breasts in 1 year.
== END | disposition home or self-care (01) ==
LOC: RADMAMWWP 10:03
PROVIDERS: ATTEND Family Medicine
DX: Z12.31 Encounter for screening mammogram for malignant neoplasm of breast (principal); Z00.00 Encounter for general adult medical examination without abnormal findings
CPT/HCPCS: 77063; 77067; 80053; 80061; 82306; 84439; 84443; 85025

== ENCOUNTER → 2020-02-04 | Outpatient (CLI) | payer MEDICARE, BC ==
[2020-02-04 12:37] LABS: Basophils # (A) 0.1 k/uL (0-0.2); Basophils % (A) 2 %; Eosinophils # (A) 0.3 k/uL (0-0.7); Eosinophils % (A) 5 %; HCT 43.5 % (34.0-46.0); HGB 13.9 gm/dL (11.4-16.0); Lymphocytes # (A) 2.4 k/uL (1.0-4.8); Lymphocytes % (A) 36 %; MCH 27.7 pg (25.0-35.0); MCHC 31.9 g/dL (31.0-37.0); MCV 86.8 fL (80.0-100.0); Mean Platelet Volume 8.3; Monocytes # (A) 0.4 k/uL (0-1.0); Monocytes % (A) 6 %; Neutrophils # (A) 3.2 k/uL (1.3-7.7); Neutrophils % (A) 49 %; Platelet Count 218 k/uL (150-450); RBC 5.01 m/uL (3.80-5.40); RDW 13.1 % (11.5-15.5); WBC 6.6 k/uL (3.8-10.6)
[2020-02-04 20:41] LABS: African American GFR (CKD) 72.9 (60.0-200.0); Albumin 4.4 g/dL (3.80-4.90); Albumin/Globulin Ratio 1.63 (1.60-3.17); Anion Gap 8.2 mmol/L (4.00-12.00); Calcium 9.4 mg/dL (8.7-10.3); Carbon Dioxide 26.8 mmol/L (21.6-31.8); Globulin 2.7 g/dL (1.6-3.3); Non-African American GFR(CKD) 62.9 (60.0-200.0); Potassium 4.7 mmol/L (3.5-5.5); Total Bilirubin 0.2 mg/dL (0.3-1.2); Total Protein 7.1 g/dL (6.2-8.2)
[2020-02-04 20:49] LABS: T4, Free (Free Thyroxine) 1.3 ng/dL (0.80-1.80)
== END | disposition home or self-care (01) ==
LOC: LABWHC1 10:45
PROVIDERS: ATTEND Family Medicine
DX: E03.9 Hypothyroidism, unspecified (principal); R10.30 Lower abdominal pain, unspecified
CPT/HCPCS: 36415; 80053; 84439; 84443; 84481; 85025

== ENCOUNTER 2020-05-16 12:35 | Emergency (ER) | payer MEDICARE, BC ==
[2020-05-16 12:43] VITALS: RESP 18
[2020-05-16] MEDS ORDERED: KETOROLAC 15 MG/ML 1 ML VIAL IVP STA (13:07)
[2020-05-16] MEDS ORDERED: ORPHENADRINE 30 MG/ML 2 ML VIAL IVP STA (13:07)
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
[2020-05-16 13:39] LABS: Basophils # (A) 0.1 k/uL (0-0.2); Basophils % (A) 2 %; Eosinophils # (A) 0.2 k/uL (0-0.7); Eosinophils % (A) 3 %; HCT 39.9 % (34.0-46.0); HGB 13.1 gm/dL (11.4-16.0); Lymphocytes # (A) 2.4 k/uL (1.0-4.8); Lymphocytes % (A) 37 %; MCH 28.1 pg (25.0-35.0); MCHC 32.9 g/dL (31.0-37.0); MCV 85.4 fL (80.0-100.0); Mean Platelet Volume 7.3; Monocytes # (A) 0.4 k/uL (0-1.0); Monocytes % (A) 6 %; Neutrophils # (A) 3.2 k/uL (1.3-7.7); Neutrophils % (A) 51 %; Platelet Count 180 k/uL (150-450); RBC 4.67 m/uL (3.80-5.40); RDW 13.4 % (11.5-15.5); WBC 6.3 k/uL (3.8-10.6)
[2020-05-16 13:49] LABS: INR 0.9 (<1.2); Partial Thromboplastin Time 24.3 sec (22.0-30.0); Prothrombin Time 9.9 sec (9.0-12.0)
[2020-05-16 13:55] LABS: Albumin 4.1 g/dL (3.5-5.0); Calcium 9.2 mg/dL (8.4-10.2); Potassium 4.1 mmol/L (3.5-5.1); Total Bilirubin 0.4 mg/dL (0.2-1.3); Total Protein 7.2 g/dL (6.3-8.2)
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
[2020-05-16 15:17] VITALS: BP 123/82; PULSE 83; TEMP 98.2
== END 2020-05-16 15:17 | disposition home or self-care (01) ==
LOC: EC 12:35
DX: S16.1XXA Strain of muscle, fascia and tendon at neck level, initial encounter (principal); R51.9 Headache, unspecified; E03.9 Hypothyroidism, unspecified; F41.9 Anxiety disorder, unspecified; F31.9 Bipolar disorder, unspecified; Z79.890 Hormone replacement therapy; Z79.899 Other long term (current) drug therapy; Z88.8 Allergy status to other drugs, medicaments and biological substances; V43.52XA Car driver injured in collision with other type car in traffic accident, initial encounter; Y92.410 Unspecified street and highway as the place of occurrence of the external cause
CPT/HCPCS: 36415; 93005; 80053; 82550; 84484; 85025; 85610; 85730; 72070; 72170; 72125; 70450; 99284; 96374; 96375; J2360; J1885

== ENCOUNTER → 2020-05-24 | Outpatient (CLI) | payer OTHER, MEDICARE, BC ==
--- NOTE | 2020-05-25 10:52 | XR ---
EXAMINATION TYPE: XR lumbosacral spine min 4V DATE OF EXAM: 05/24/2020 COMPARISON: 07/24/2014 HISTORY: Left lumbar radiculopathy TECHNIQUE: Five-view lumbar spine FINDINGS: Scoliosis present with convexity to the right centered at L3. No spondylolytic defects are evident. Vertebral body heights are preserved. Disc heights appear preserved. IMPRESSION: 1. Scoliosis.
== END | disposition home or self-care (01) ==
LOC: RADXRMAIN 16:22
PROVIDERS: ATTEND Family Medicine
DX: M41.86 Other forms of scoliosis, lumbar region (principal)
CPT/HCPCS: 72110

== ENCOUNTER → 2020-08-17 | Outpatient (CLI) | payer BC, MEDICARE ==
--- NOTE | 2020-08-18 08:46 | MM ---
Reason for exam: additional evaluation requested from prior study. Last mammogram was performed 1 year and 1 month ago. History: Patient is postmenopausal and is nulliparous. Family history of premenopausal breast cancer in paternal aunt at age 45. Benign excisional biopsy of the right breast, December 18, 2001. Cyst aspiration of the right breast. Took estrogen for 4 years beginning at age 38. Physical Findings: Nurse did not find any significant physical abnormalities on exam. MG 3D Diag Mammo W/Cad ARJUN Bilateral CC and MLO view(s) were taken. Prior study comparison: July 28, 2019, bilateral MG 3d screening mammo w/cad. April 12, 2018, bilateral MG 3d screening mammo w/cad. There are scattered fibroglandular densities. No significant new findings when compared with previous films. These results were verbally communicated with the patient and result sheet given to the patient on 08/17/20. ASSESSMENT: Benign, BI-RAD 2 RECOMMENDATION: Routine screening mammogram of both breasts in 1 year. Manage on a clinical basis with regard to patient's area of concern.
--- NOTE | 2020-08-18 08:47 | USB ---
Reason for exam: additional evaluation requested from prior study. History: Patient is postmenopausal and is nulliparous. Family history of premenopausal breast cancer in paternal aunt at age 45. Benign excisional biopsy of the right breast, December 18, 2001. Cyst aspiration of the right breast. Took estrogen for 4 years beginning at age 38. US Breast Limited RT Right limited breast ultrasound including focal area of concern, retroareolar and axilla demonstrates no cystic or solid lesion seen. These results were verbally communicated with the patient and result sheet given to the patient on 08/17/20. ASSESSMENT: Negative, BI-RAD 1 RECOMMENDATION: Routine screening mammogram of both breasts in 1 year.
== END | disposition home or self-care (01) ==
LOC: RADMAMWWP 14:52
PROVIDERS: ATTEND Family Medicine
DX: N63.11 Unspecified lump in the right breast, upper outer quadrant (principal)
CPT/HCPCS: 77066; 76642; G0279; 77062

== ENCOUNTER → 2020-08-23 | Outpatient (CLI) | payer MEDICARE, OTHER ==
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
== END | disposition home or self-care (01) ==
CPT/HCPCS: 99211

== ENCOUNTER 2020-09-09 08:37 | Day surgery (SDC) | payer MEDICARE, OTHER ==
[2020-09-07 16:00] VITALS: BMI 27.4
[~2020-09-09 08:37] MED LIST changes: +LACTATED RINGERS 1,000 ML IV SCH; -REGADENOSON 0.4 MG/5 ML SYRINGE IV ONE
[2020-09-09 08:53] VITALS: RESP 16; TEMP 97
[2020-09-09] MEDS ORDERED: fentaNYL (PF) 50 MCG/ML 2 ML AMP ONE (09:20)
[2020-09-09] MEDS ORDERED: IOPAMIDOL M200 10 ML VIAL ONE (09:20)
[2020-09-09] MEDS ORDERED: methylPREDNISolone ACETATE 40 MG/ML 1 ML VIAL ONE (09:20)
[2020-09-09] MEDS ORDERED: MIDAZOLAM 2 MG/2 ML VIAL ONE (09:20)
--- NOTE | 2020-09-09 09:34 | P.PCN ---
Date of Procedure: 09/09/20 Procedure(s) Performed: PREOPERATIVE DIAGNOSIS: 1- Lumbar herniated Disc Diseases 2-Lumbar radiculopathy POSTOPERATIVE DIAGNOSIS: Same as preop diagnosis. PROCEDURE 1. Lumbar epidural steroid injection under fluoroscopic guidance at the L4-5 level. (Fluoroscopy imaging was available in radiology department) 2. Lumbar epidurogram. ANESTHESIA: Local with 1% lidocaine 3 ml and , moderate sedation with intravenous Versed 2 mg ,and fentanyle 100 Mcg EBL: Minimal PROCEDURE INDICATION: The patient with low back pain and radiculitis symptoms unresponsive to conservative treatment. Fluoroscopy was used to optimize visualization of the needle placement and to maximize safety. PROCEDURE DESCRIPTION / TECHNIQUE: The patient was seen and identified in the preoperative area. Risks, benefits, complications including but not limited to infections ,bleeding ,allergic reaction to the medications ,nerve damage and not complete pain releife , and alternatives were discussed with the patient. The patient agreed to proceed with the procedure and signed the consent. IV was started, and vital signs were stable. Patient was taken to the OR and time out was completed. The patient was placed in the prone position on procedure table and a pillow was placed under the abdomen to reduce lumbar lordosis. The lumbosacral area was prepped and draped in the usual sterile fashion.ere closely monitored during the procedure. Conscious sedation was used during the procedure to decrease patients anxiety. Vital signs was monitered during the entire procedure. Using anterior-posterior fluoroscopy, the L4-5 ( left paramedial ) interlaminar space was identified and the skin over this site was marked and then infiltrated with 1% lidocaine subcutaneously. Subsequently, a 20-gauge Tuohy epidural needle was inserted and advanced toward the epidural space using the ``Loss of resistance technique and guided by AP and lateral fluoroscopy. The correct needle position in the epidural space was verified with the injection of 2 mL of the water soluble contrast dye Isovue 200 contrast and observing an excellent epidurogram with the epidural spread of the dye, after negative aspiration for blood and CSF and in the absence of paresthesias. Again after negative aspiration, a 6 ml mixture containing 80 mg of Depo-medrol , and 2 ml of preservative free Normal Saline, and 2 ml of preservative free lidocaine 1% solution was injected and a washout of epidurogram was seen. Needle was withdrawn intact, skin was cleansed, and bandages were applied. COMPLICATIONS: None DISPOSITION / PLANS: The patient was placed in a supine position and transferred to the recovery area in a stable condition for observation. There was no evidence of lower extremity motor or sensory deficit after the procedure. Patient was discharged from the recovery room after meeting discharge criteria. Home discharge instructions were given to the patient by the staff. The patient was reexamined prior to discharge. The patient will schedule a follow up in the clinic in 2-4 weeks.
[2020-09-09] MEDS ORDERED: IV FLUID CONTINUATION 1,000 ML IV ONE (09:38)
[2020-09-09 10:44] VITALS: BP 106/73; PULSE 84
--- NOTE | 2020-09-10 10:52 | FL ---
EXAMINATION TYPE: FL guided pain mgmt statistic DATE OF EXAM: 09/09/2020 HISTORY: Fluoroscopy time 4 seconds of fluoroscopy provided. IMPRESSION: 1. Fluoroscopy time.
== END 2020-09-09 10:57 | disposition home or self-care (01) ==
LOC: ORPAIN 08:37
PROVIDERS: ATTEND Specialist
DX: M51.16 Intervertebral disc disorders with radiculopathy, lumbar region (principal); Z88.8 Allergy status to other drugs, medicaments and biological substances
CPT/HCPCS: 62323; J2250; J1030; J3010; Q9966

== ENCOUNTER 2020-10-19 10:05 | Day surgery (SDC) | payer MEDICARE, OTHER ==
[2020-09-30 09:40] VITALS: BMI 27.1
[2020-10-19 10:32] VITALS: TEMP 97.5
[2020-10-19] MEDS ORDERED: LACTATED RINGERS 1,000 ML IV ONE (10:32)
[2020-10-19] MEDS ORDERED: MIDAZOLAM 2 MG/2 ML VIAL ONE (10:38)
[2020-10-19] MEDS ORDERED: IOPAMIDOL M200 10 ML VIAL ONE (10:38)
[2020-10-19] MEDS ORDERED: methylPREDNISolone ACETATE 40 MG/ML 1 ML VIAL ONE (10:38)
[2020-10-19] MEDS ORDERED: fentaNYL (PF) 50 MCG/ML 2 ML AMP ONE (10:38)
--- NOTE | 2020-10-19 10:59 | P.PCN ---
Date of Procedure: 10/19/20 Procedure(s) Performed: PREOPERATIVE DIAGNOSIS: 1- Lumbar herniated Disc Diseases 2-Lumbar radiculopathy POSTOPERATIVE DIAGNOSIS: Same as preop diagnosis. PROCEDURE 1. Lumbar epidural steroid injection under fluoroscopic guidance at the L4-5 level. (Fluoroscopy imaging was available in radiology department) 2. Lumbar epidurogram. ANESTHESIA: Local with 1% lidocaine 3 ml and , moderate sedation with intravenous Versed 2 mg ,and fentanyle 100 Mcg EBL: Minimal PROCEDURE INDICATION: The patient with low back pain and radiculitis symptoms unresponsive to conservative treatment. Fluoroscopy was used to optimize visualization of the needle placement and to maximize safety. PROCEDURE DESCRIPTION / TECHNIQUE: The patient was seen and identified in the preoperative area. Risks, benefits, complications including but not limited to infections ,bleeding ,allergic reaction to the medications ,nerve damage and not complete pain releife , and alternatives were discussed with the patient. The patient agreed to proceed with the procedure and signed the consent. IV was started, and vital signs were stable. Patient was taken to the OR and time out was completed. The patient was placed in the prone position on procedure table and a pillow was placed under the abdomen to reduce lumbar lordosis. The lumbosacral area was prepped and draped in the usual sterile fashion.ere closely monitored during the procedure. Conscious sedation was used during the procedure to decrease patients anxiety. Vital signs was monitered during the entire procedure. Using anterior-posterior fluoroscopy, the L4-5 ( left paramedial ) interlaminar space was identified and the skin over this site was marked and then infiltrated with 1% lidocaine subcutaneously. Subsequently, a 20-gauge Tuohy epidural needle was inserted and advanced toward the epidural space using the ``Loss of resistance technique and guided by AP and lateral fluoroscopy. The correct needle position in the epidural space was verified with the injection of 2 mL of the water soluble contrast dye Isovue 200 contrast and observing an excellent epidurogram with the epidural spread of the dye, after negative aspiration for blood and CSF and in the absence of paresthesias. Again after negative aspiration, a 6 ml mixture containing 80 mg of Depo-medrol , and 2 ml of preservative free Normal Saline, and 2 ml of preservative free lidocaine 1% solution was injected and a washout of epidurogram was seen. Needle was withdrawn intact, skin was cleansed, and bandages were applied. COMPLICATIONS: None DISPOSITION / PLANS: The patient was placed in a supine position and transferred to the recovery area in a stable condition for observation. There was no evidence of lower extremity motor or sensory deficit after the procedure. Patient was discharged from the recovery room after meeting discharge criteria. Home discharge instructions were given to the patient by the staff. The patient was reexamined prior to discharge. The patient will schedule a follow up in the clinic in 2-4 weeks.
[2020-10-19] MEDS ORDERED: IV FLUID CONTINUATION 600 ML IV ONE (11:12)
--- NOTE | 2020-10-19 11:13 | FL ---
Fluoroscopy INDICATION: Pain FINDINGS: Fluoroscopy time: 2 seconds. Images obtained: 1. IMPRESSIONS: 1. Documentation of fluoroscopy.
[2020-10-19 11:35] VITALS: BP 106/65; PULSE 82; RESP 16
== END 2020-10-19 12:06 | disposition home or self-care (01) ==
LOC: ORPAIN 10:05
PROVIDERS: ATTEND Specialist
DX: M51.16 Intervertebral disc disorders with radiculopathy, lumbar region (principal); Z88.8 Allergy status to other drugs, medicaments and biological substances
CPT/HCPCS: 62323; J2250; J1030; J3010; Q9966; 99152

== ENCOUNTER → 2020-11-01 | Outpatient (CLI) | payer MEDICARE, OTHER ==
[2020-11-01 09:38] VITALS: BP 113/78; PULSE 81; RESP 18; TEMP 97.8
--- NOTE | 2020-11-01 10:09 | P.PN ---
Subjective Progress Note Date: 11/01/20 This is a follow-up visit for this 55 years old female with a chronic history of severe low back pain with radiation to the left lower extremity associated with numbness and tingling sensation, they closed with lumbar radiculopathy and lumbar degenerative disc disease, status post lumbar epidural steroid injection 2, she reported that her numbness and tingling sensation improved significantly and currently she is having localized severe low back pain, the intensity of the pain increases with her activity and interfere with her quality of life, is constant and increases with any activity, she denies any motor or sensory deficit she denies any fever or night sweats . Objective - Vital Signs Vital signs: Vital Signs Temp 97.8 F 11/01/20 09:35 Pulse 81 11/01/20 09:35 Resp 18 11/01/20 09:35 BP 113/78 11/01/20 09:35 Pulse Ox 93 L 11/01/20 09:35 - Exam Physical Examinations : -Constitutiona : Cooperative , not in acute distress . -HEENT : nech : supple , no Lymphadenopathy , normal thyroid size . : eyes : no ptosis , no icterus, no photophobia . - neurologic : Cranial nerve II to XII intact , no focal neurological deffecit . -psychatric : alert , oriented X 3 , appropriate affect , intact judgment and insight . -Lymphatic : no Lymphadenopathy . - musculoskeltal : Lumber spine moter stegnth lower extremities ,thigh and legs 5/5 Right side , 5/5 Left side deep tendon reflexes : normal Knee Jerk , normal ankle Jerk lumber facet Loading Test =positive Right , positive Left Range of motion of the lumbar spine Flexion 30 degrees, extension 10 degrees strait leg raising test = positive at 45 degree Fabere test= positive Right , and positive LT . tenderness over the Sacroiliac joint on the Right , and Left sides Assessment and Plan Plan: Assessment and plan=1-lumbar radiculopathy. 2-Lumbar spondylosis with lumbar facet arthropathy. Patient had lumbar epidural steroid injections 2 , radicular symptoms improved significantly, currently the patient having, facetogenic component pain, patient will be good candidate to have diagnostic medial branch block lumbar area Bilat L3, L4, L5, and possible RFA - PQRS measures = - Patient's medications are documented in the chart. -Tobacco use is negative and counseling.Given. -Patient's has not received pneumococcal vaccine. -Advanced care planning discussed, patient not eligible. -Opiate contract not signed. -Pain positive and follow-up visit/procedure is scheduled. -Patient's blood pressure measured [130/78 ] , and documented in the record ,and patient will follow up with the primary care. -Patient's weight was measured and body mass index [27 ] above the,normal limits and counseling was done. and patient instructed to follow-up with the primary care physician. -Patient was not identified as an unhealthy alcohol user Time with Patient: Less than 30
== END ==
LOC: PNWHC3 09:25
PROVIDERS: ATTEND Specialist
DX: M47.26 Other spondylosis with radiculopathy, lumbar region (principal); Z88.8 Allergy status to other drugs, medicaments and biological substances
CPT/HCPCS: 99211

== ENCOUNTER 2020-11-19 12:04 | Day surgery (SDC) | payer MEDICARE, OTHER ==
[2020-11-17 15:50] VITALS: BMI 27.1
[2020-11-19 12:46] VITALS: TEMP 97.8
[2020-11-19] MEDS ORDERED: LACTATED RINGERS 1,000 ML IV ONE (12:46)
[2020-11-19] MEDS ORDERED: IOPAMIDOL M200 10 ML VIAL ONE (13:20)
[2020-11-19] MEDS ORDERED: MIDAZOLAM 2 MG/2 ML VIAL ONE (13:20)
[2020-11-19] MEDS ORDERED: fentaNYL (PF) 50 MCG/ML 2 ML AMP ONE (13:20)
[2020-11-19] MEDS ORDERED: TRIAMCINOLONE ACETONIDE 40 MG/ML 1 ML VIAL ONE (13:20)
[2020-11-19] MEDS ORDERED: ROPIVACAINE 5MG/ML 20ML VIAL ONE (13:20)
[2020-11-19] MEDS ORDERED: NALOXONE 0.4 MG/ML 1 ML VIAL ONE (13:20)
--- NOTE | 2020-11-19 13:36 | P.PCN ---
Date of Procedure: 11/19/20 Description of Procedure: PREOPERATIVE DIAGNOSIS : Lumbar spondylosis with Facet Arthropathy without myelopathy POSTOPERATIVE DIAGNOSIS: same PROCEDURE: first Diagnostic lumbar medial branch block with fluoroscopy at L3, L4, L5 [bilateral] which covers facets L4-5 and L5-S1 ANESTHESIA: Local anesthetic; moderate IV sedation with anethesia team Fluoroscopy was used for the procedure and images were saved in the radiology portion of the chart. Surgeon: Driss Peoples MD PROCEDURE INDICATION: Lumbar back pain without radiculopathy, not responsive to conservative management. PROCEDURE DESCRIPTION: the patient was seen and identified in the preop holding area , risks and benefits and possible complications of the procedure and alternatives were discussed with the patient, and the patient agreed to proceed with the procedure and signed the consent . IV was started , vital signs were monitored during the procedure and fluoroscopy was used to maximize the benefit and accuracy of the needle placement, and sedation was given to decrease patient anxiety. Patient was taken to the procedure room and placed in prone position. The lumbar region was prepped using chlorhexidineX-2. Under strict sterile technique using AP fluoroscopy the bilateral sacral ala were identified and using ipsilateral oblique fluoroscopy ,the junction of the transverse process and the superior articulating process of the L4, L5 vertebra which corresponds to the fluoroscopy image of the eye of the Oracio dog for the medial branches were identified. Subsequently, after local infiltration of skin with lidocaine 1% 0.2 mL at each level , [id number] 3.5" Quincke-type needle was placed at the junction of the base of the transverse process and the superior articular process at the appropriate level as well as the sacral ala, and the needle was advanced until the periosteum contacted, needle placement confirmed with AP and oblique fluoroscopy, 0.2 mL of Isovue 200 per level was injected which revealed no vascular uptake and after negative aspiration. I don up 5 mL of 0.5% ropivacaine and 1 mL of 40 mg/mL kenalog and injected 1 mL of this injectate at each level and the needle subsequently removed . A total of [2 levels injected bilaterally] At the end of the procedure and the needles were removed and a bandage applied after the skin was cleaned. The patient was taken to recovery room in stable condition and monitors in the recovery room for 20-30 minutes and discharged home in stable condition after discharge criteria met and patient will follow up for repeat procedure in 2 weeks EBL: Minimal COMPLICATION: None.
--- NOTE | 2020-11-19 13:49 | FL ---
EXAMINATION TYPE: FL guided pain mgmt statistic DATE OF EXAM: 11/19/2020 CLINICAL HISTORY: Low back pain. TECHNIQUE: Fluoroscopy. COMPARISON: None. FINDINGS: Fluoroscopic guidance was provided during pain relief procedure performed by Dr. Peoples . A total of 7 seconds of fluoroscopic time was utilized during the procedure and 3 spot images are ac quired. Images acquired shows needle localization at level of the lower lumbar spine and lumbosacral junction. IMPRESSION: As Above.
[2020-11-19] MEDS ORDERED: IV FLUID CONTINUATION 1,000 ML IV ONE (13:54)
[2020-11-19 13:57] VITALS: RESP 16
[2020-11-19 14:25] VITALS: BP 110/71; PULSE 89
== END 2020-11-19 14:50 ==
LOC: ORPAIN 12:04
PROVIDERS: ATTEND Anesthesiology
DX: M47.816 Spondylosis without myelopathy or radiculopathy, lumbar region (principal)
CPT/HCPCS: 64493; 64494; J2250; J3301; J2310; J3010; Q9966; J2795

== ENCOUNTER 2020-12-31 12:42 | Day surgery (SDC) | payer MEDICARE, OTHER ==
[2020-12-30 10:25] VITALS: BMI 27.1
[2020-12-31 12:57] VITALS: RESP 16; TEMP 97.2
[2020-12-31] MEDS ORDERED: ROPIVACAINE 5MG/ML 20ML VIAL ONE (13:10)
[2020-12-31] MEDS ORDERED: MIDAZOLAM 2 MG/2 ML VIAL ONE (13:10)
[2020-12-31] MEDS ORDERED: TRIAMCINOLONE ACETONIDE 40 MG/ML 1 ML VIAL ONE (13:10)
[2020-12-31] MEDS ORDERED: fentaNYL (PF) 50 MCG/ML 2 ML AMP ONE (13:10)
--- NOTE | 2020-12-31 13:27 | P.PCN ---
Date of Procedure: 12/31/20 Surgeon: Ernie Johns Pathology: none sent Condition: stable Disposition: PACU Description of Procedure: PREOPERATIVE DIAGNOSIS : Lumbar spondylosis with Facet Arthropathy without myelopathy POSTOPERATIVE DIAGNOSIS: same PROCEDURE: Second Diagnostic lumbar medial branch block with fluoroscopy at L3, L4, L5 [bilateral] which covers facets L4-5 and L5-S1 ANESTHESIA: Local anesthetic; moderate IV sedation by the anesthesia Department Fluoroscopy was used for the procedure and images were saved in the radiology portion of the chart. Surgeon: Ernie Johns MD PROCEDURE INDICATION: Lumbar back pain without radiculopathy, not responsive to conservative management. PROCEDURE DESCRIPTION: the patient was seen and identified in the preop holding area , risks and benefits and possible complications of the procedure and alternatives were discussed with the patient, and the patient agreed to proceed with the procedure and signed the consent . IV was started , vital signs were monitored during the procedure and fluoroscopy was used to maximize the benefit and accuracy of the needle placement, and sedation was given to decrease patient anxiety. Patient was taken to the procedure room and placed in prone position. The lumbar region was prepped using chlorhexidine. Under strict sterile technique using AP fluoroscopy the bilateral sacral ala were identified and using ipsilateral oblique fluoroscopy ,the junction of the transverse process and the superior articulating process of the L4, L5 vertebra which corresponds to the fluoroscopy image of the eye of the Oracio dog for the medial branches were identified. Subsequently, after local infiltration of skin with lidocaine 1% 0.2 mL at each level , [id number] 3.5" Quincke-type needle was placed at the junction of the base of the transverse process and the superior articular process at the appropriate level as well as the sacral ala, and the needle was advanced until the periosteum contacted, needle placement confirmed with AP and oblique fluoroscopy, 0.2 mL of Isovue 200 per level was injected which revealed no vascular uptake and after negative aspiration. I don up 5 mL of 0.5% ropivacaine and 1 mL of 40 mg/mL kenalog and injected 1 mL of this injectate at each level and the needle subsequently removed . A total of [2 levels injected bilaterally] At the end of the procedure and the needles were removed and a bandage applied after the skin was cleaned. The patient was taken to recovery room in stable condition and monitors in the recovery room for 20-30 minutes and discharged home in stable condition after discharge criteria met and patient will follow up for repeat procedure in 2 weeks EBL: Minimal COMPLICATION: None.
[2020-12-31 13:48] VITALS: BP 106/66; PULSE 83
[2020-12-31] MEDS ORDERED: LACTATED RINGERS 1,000 ML IV ONE (13:48)
[2020-12-31] MEDS ORDERED: IV FLUID CONTINUATION 700 ML IV ONE (13:48)
--- NOTE | 2020-12-31 17:03 | FL ---
EXAMINATION TYPE: FL guided pain mgmt statistic DATE OF EXAM: 12/31/2020 CLINICAL HISTORY: Bilateral lumbar facet injection TECHNIQUE: Fluoroscopy. COMPARISON: None. FINDINGS: Fluoroscopic guidance was provided during procedure performed by Dr. Johns. A total of 8 seconds of fluoroscopic time was utilized during the procedure and 4 spot images acquired. IMPRESSION: As Above.
== END 2020-12-31 14:02 | disposition home or self-care (01) ==
LOC: ORPAIN 12:42
PROVIDERS: ATTEND Anesthesiology
DX: M47.816 Spondylosis without myelopathy or radiculopathy, lumbar region (principal); F41.9 Anxiety disorder, unspecified; F32.9 Major depressive disorder, single episode, unspecified; Z99.81 Dependence on supplemental oxygen; R56.9 Unspecified convulsions; E07.9 Disorder of thyroid, unspecified; Z79.899 Other long term (current) drug therapy
CPT/HCPCS: 64493; 64494; 64495; J2250; J3301; J3010; J2795

== ENCOUNTER → 2021-01-17 | Outpatient (CLI) | payer MEDICARE, OTHER ==
[2021-01-17 14:45] VITALS: BP 114/79; PULSE 89; RESP 18; TEMP 97.5
--- NOTE | 2021-01-17 14:55 | P.PN ---
Subjective Progress Note Date: 01/17/21 This is a follow-up visit for this 55 years old female with a chronic history of severe low back pain with radiation to the left lower extremity associated with numbness and tingling sensation, She is diagnosed with lumbar spondylosis , and lumbar degenerative disc disease, status post diagnostic medial branch block lumbar area at L3, L4 , L5 Bilaterally, x2 she got excellent pain relief after the first diagnostic block she had 100% improvement of her pain for a few weeks, after the second diagnostic block she gets 100% relief for a few hours, she denies any motor or sensory deficit she denies any fever or night sweats Physical Examinations : -Constitutiona : Cooperative , not in acute distress . -HEENT : nech : supple , no Lymphadenopathy , normal thyroid size . : eyes : no ptosis , no icterus, no photophobia . - neurologic : Cranial nerve II to XII intact , no focal neurological deffecit . -psychatric : alert , oriented X 3 , appropriate affect , intact judgment and insight . -Lymphatic : no Lymphadenopathy . - musculoskeltal : Lumber spine moter stegnth lower extremities ,thigh and legs 5/5 Right side , 5/5 Left side deep tendon reflexes : normal Knee Jerk , normal ankle Jerk lumber facet Loading Test =positive Right , positive Left Range of motion of the lumbar spine Flexion 30 degrees, extension 10 degrees strait leg raising test = positive at 45 degree Fabere test= positive Right , and positive LT . tenderness over the Sacroiliac joint on the Right , and Left sides Assessment and Plan Plan: Assessment and plan=1-lumbar radiculopathy. 2-Lumbar spondylosis with lumbar facet arthropathy. , patient will be good candidate to have RFA medial branch block lumbar area Bilat L3, L4, L5. - PQRS measures = - Patient's medications are documented in the chart. -Tobacco use is negative and counseling.Given. -Patient's has not received pneumococcal vaccine. -Advanced care planning discussed, patient not eligible. -Opiate contract not signed. -Pain positive and follow-up visit/procedure is scheduled. -Patient's blood pressure measured [114/79 ] , and documented in the record ,and patient will follow up with the primary care. -Patient's weight was measured and body mass index [27.3 ] above the,normal limits and counseling was done. and patient instructed to follow-up with the primary care physician. -Patient was not identified as an unhealthy alcohol user Objective - Vital Signs Vital signs: Vital Signs Temp 97.5 F L 01/17/21 14:37 Pulse 89 01/17/21 14:37 Resp 18 01/17/21 14:37 BP 114/79 01/17/21 14:37 Pulse Ox 95 01/17/21 14:37
== END ==
LOC: PNWHC3 13:52
PROVIDERS: ATTEND Specialist
DX: M47.26 Other spondylosis with radiculopathy, lumbar region (principal); Z88.5 Allergy status to narcotic agent
CPT/HCPCS: 99211

== ENCOUNTER 2021-02-18 13:05 | Day surgery (SDC) | payer MEDICARE, OTHER ==
[2021-02-15 15:24] VITALS: BMI 27.3
[2021-02-18 13:26] VITALS: TEMP 97.6
[2021-02-18] MEDS ORDERED: LACTATED RINGERS 1,000 ML IV ONE (13:29)
[2021-02-18] MEDS ORDERED: methylPREDNISolone ACETATE 40 MG/ML 1 ML VIAL ONE (13:31)
[2021-02-18] MEDS ORDERED: ROPIVACAINE 5MG/ML 20ML VIAL ONE (13:31)
[2021-02-18] MEDS ORDERED: MIDAZOLAM 2 MG/2 ML VIAL ONE (13:34)
[2021-02-18] MEDS ORDERED: fentaNYL (PF) 50 MCG/ML 2 ML AMP ONE (13:34)
--- NOTE | 2021-02-18 14:03 | P.PCN ---
Date of Procedure: 02/18/21 Procedure(s) Performed: PREOPERATIVE DIAGNOSIS: 1-Lumbar Spondylosis with Facet Arthropathy without myelopathy. POSTOPERATIVE DIAGNOSIS: 1- Lumbar Spondylosis with Facet Arthropathy without myelopathy. PROCEDURES : Bilateral Radiofrequency thermocoagulation, L3 , L4 , and L5 medial branch, with fluoroscopic guidance (fluoroscopy images available in the radiology department) ( to denervate the facet joint at Bilateral L4-5 ,and L5-S1 levels ). ANESTHESIA: Monitored anesthesia care, as per anesthesia department . EBL: Minimal PROCEDURE INDICATION: The patient with low back pain secondary to lumbar facet arthropathy who had more than 50% relief of her pain with previous diagnostic lumbar medial branch block with bupivacaine. PROCEDURE DESCRIPTION / TECHNIQUE: The patient was seen and identified in the preoperative area. Risks, benefits, complications, including but not limited to risk of infection ,bleeding , allergic reactions to the medications and no complete pain releife , and alternatives were discussed with the patient, the patient agreed to proceed with the procedure and signed the consent. IV was started. Vital signs remained stable throughout the procedure. Patient was taken to the OR and time out was completed. The patient was placed in the prone position on the procedure table. The lumber area was prepped and draped in the usual sterile fashion. . Vital signs were closely monitored during the procedure .IV sedation was used during the procedure to decrease patients anxiety. Using AP and then oblique fluoroscopy, the ``eye of the Oracio dog corresponding to the connection between the superior and transverse articular p rocesses of right L3, L4, and L5 were identified, marked, and localized with 1% lidocaine. Subsequently, a 18 [id number] radiofrequency cannula with a 10- mm active tip was advanced guided by fluoroscopy to each of the``eyes of the Oracio dog at right L3, L4, and L5. Each site then underwent sensory testing at 50 Hz and 0 to 1 volt and motor testing at 2.5 Hz and 0 to 3 volt with local stimulation, but no radicular symptoms down the legs. Thereafter each sites underwent radiofrequency thermocoagulation at 80 degrees celsius for 90 seconds after injecting 0.5 ml of PF Ropivacaine 1ml, then after the thermocoagulation done , 1 ml of the block solution containing Depo-Medrol 20 mg and 3 ml of Ropivacaine 0.5% was injected at the right L3 , L4 , and L5 , levels after negative aspiration of CSF and blood and with no paresthesias. Cannulas were retracted while injecting lidocaine 1% until the needle is out. The same procedure was repeated at the level of Left L3, L4, and L5 levels. At the end of the procedure, the skin was cleansed and bandages were applied. COMPLICATIONS: No acute complications. DISPOSITION / PLANS: The patient was placed in a supine position and tra nsferred to the recovery area in a stable condition for observation and was discharged from the recovery room after meeting discharge criteria. Home discharge instructions given to the patient by the staff. The patient was reexamined prior to discharge. The patient will schedule a follow up in the clinic in 2-4 weeks.
[2021-02-18 14:23] VITALS: RESP 16
[2021-02-18 14:37] VITALS: BP 105/68; PULSE 86
[2021-02-18] MEDS ORDERED: IV FLUID CONTINUATION 1,000 ML IV ONE (14:45)
--- NOTE | 2021-02-18 15:32 | FL ---
Fluoroscopy INDICATION: Pain FINDINGS: Fluoroscopy time: 10 seconds. Images obtained: 7. IMPRESSIONS: 1. Documentation of fluoroscopy.
== END 2021-02-18 16:12 | disposition home or self-care (01) ==
LOC: ORPAIN 13:05
PROVIDERS: ATTEND Specialist
DX: M47.816 Spondylosis without myelopathy or radiculopathy, lumbar region (principal); E07.9 Disorder of thyroid, unspecified; G89.29 Other chronic pain; K21.9 Gastro-esophageal reflux disease without esophagitis; G70.00 Myasthenia gravis without (acute) exacerbation; R56.9 Unspecified convulsions; Z87.19 Personal history of other diseases of the digestive system; Z79.890 Hormone replacement therapy; Z79.899 Other long term (current) drug therapy
CPT/HCPCS: 64635; 64636; J2250; J1030; J3010; J2795

== ENCOUNTER → 2021-04-13 | Outpatient (CLI) | payer MEDICARE, OTHER ==
[2021-04-13 15:20] VITALS: RESP 18
--- NOTE | 2021-04-13 16:22 | P.PN ---
Subjective Progress Note Date: 04/13/21 Ms. Mao is a 56-year-old female presented to clinic today for follow-up appointment after her bilateral RFA of L4 5 and L5-S1 onset per third 2020. She reports since that procedure she's been pain-free however about a week or so ago she was moving some heavy objects and felt a strain in her back. She reports that pain is in her lower back left side greater than right she describes it as a spasm sensation. Pain is worse with activity and sitting. Pain is better with ice, heat, [id number] Tylenol and Motrin. She feels that this pain is different than the pain that she had prior to the RFA. She reports her pain is 2 of 10 at a 0-to-10 scale. She denies any bowel or bladder dysfunction, saddle anesthesia, or any other red flag symptoms. Objective - Vital Signs Vital signs: Vital Signs Temp Pulse Resp 18 04/13/21 15:13 BP Pulse Ox - Exam Physical Examinations : -Constitutiona : Cooperative , not in acute distress . -HEENT : nech : supple , no Lymphadenopathy , normal thyroid size . : eyes : no ptosis , no icterus, no photophobia . - neurologic : Cranial nerve II to XII intact , no focal neurological deffecit . -psychatric : alert , oriented X 3 , appropriate affect , intact judgment and insight . -Lymphatic : no Lymphadenopathy . - musculoskeltal : Lumber spine moter stegnth lower extremities ,thigh and legs 5/5 Right side , 5/5 Left side deep tendon reflexes : normal Knee Jerk , normal ankle Jerk lumber facet Loading Test = negative Range of motion of the lumbar spine Flexion 30 degrees, extension 10 degrees strait leg raising test = negative Lumbar region is painful to palpation on the left side between the iliac crest and the transverse process of L5 Assessment and Plan Assessment: Assesment: lumbar spondylosis and arthropathy without myelopathy Ilial sacral ligament inflammation Plan: Patient may benefit from steroid injection at the left iliosacral ligament Consider follow-up appointment in the future for repeat RFA of the lumbar region if necessary - PQRS measures = - Patient's medications are documented in the chart. -Tobacco use is negative -Patient's has not received pneumococcal vaccine. -Advanced care planning discussed, patient not eligible. -Opiate contract not signed. -Pain positive and follow-up visit/procedure is scheduled. -Patient's blood pressure measured 108/74 , and documented in the record ,and patient will follow up with the primary care. -Patient was not identified as an unhealthy alcohol user Time with Patient: Less than 30
[2021-04-14 14:37] VITALS: BP 108/74; PULSE 93; TEMP 97.8
== END ==
LOC: PNWHC3 13:57
PROVIDERS: ATTEND Student in an Organized Health Care Education/Training Program
DX: M47.816 Spondylosis without myelopathy or radiculopathy, lumbar region (principal); Z88.8 Allergy status to other drugs, medicaments and biological substances
CPT/HCPCS: 99211

== ENCOUNTER → 2021-08-22 | Outpatient (CLI) | payer MEDICARE, OTHER ==
[2021-08-22 09:51] VITALS: BP 124/61; PULSE 80; RESP 16; TEMP 98.2
--- NOTE | 2021-08-22 09:58 | P.PN ---
Subjective Progress Note Date: 08/22/21 Principal diagnosis: A 56 yr old female with a history of severe and chronic low back pain secondary to lumbar degenerative disc diseases and lumbar spondylosis with facet arthropathy presents today for lower back pain status post bilateral RFA of the L3 L5 approximately 5 months ago. Patient states the pain is on and off in character, that's why she did not pursue the procedure several months ago. Pain level is 1 out of 10 in intensity currently but escalates as high as 8 out of 10 in intensity of a dull achy character in the lower back where it meets the sacrum with radiation down the left lower extremity. Pain is provoked by sitting or laying in 1 position for periods of 1 hour or more. Pain is alleviated with medications, topicals, heat, physical therapy in 2020 which made pain worse, chiropractic treatments in the past which made pain worse, daily home stretching regimen, walking, repositioning and rest. Interventional pain procedures completed include bilateral RFA of the L3 L5 Patient is currently on Tylenol ES, Naproxen by Dr. Piña Patient denies any side effects of the medication(s), denies excessive drowsiness or sleepiness, denies suicidal ideation and reports that the current pain medication is helping to control the pain and improve activities of daily living. Patient denies any motor or sensory deficits. Patient denies any fever or night sweats, denies any change in the bowel movements or urination. Physical Examination: -Constitutional: Cooperative. Not in acute distress . -HEENT: Neck is supple. No lymphadenopathy. No thyromegaly. Normal thyroid size. Eyes: No ptosis , no icterus, no photophobia. ENT: No auditory deficits. Normal oropharynx. No Thrush. - Respiratory: Chest clear to auscultations bilaterally. No wheezing. No rhonchi. - Cardiovascular: Regular rate and rhythm. S1 / S2 , no S3 , no S4. - Gastrointestinal: Abdomen soft no tenderness. Bowel sounds positive in all four quadrants. No organomegaly. - Genitourinary: Deferred. - Neurologic: Cranial nerve II to XII intact. No focal neurological deficits. - Psychatric: Alert & oriented x 3. Matching mood & appropriate affect. Judgment and insight intact. - Lymphatic: No Lymphadenopathy. - Musculoskeletal: Cervical spine: Muscle bulk/ tone/ strength in the bilateral upper extremities normal. Facet loading test cervical area positive. Lumbar spine: Motor bulk/ tone/ strength lower extremities , thigh and legs : 5/5 Deep tendon reflexes : Normal Knee Jerk. Normal Ankle Jerk . Vertebral body tenderness to palpation over Lumbar Facet Loading Test positive Straight Leg Raise: positive at 30 degrees right side/ left side Gaenslen's Test positive over the left Sacral spine : Severe tenderness over the Sacroiliac joint: right side / left side Range of motion: Flexion of the lumbar spine <60 degrees Range of motion: Extension of the lumbar spine <20 degrees Gaenslen's Test positive Ngoc test: positive right side / left side Assessment and plan: Chronic low back pain secondary to lumbar degenerative disc disease , lumbar spondylosis with facet arthropathy without myelopathy. Left iliosacral ligament inflammation. Recommendation of left iliosacral ligament injection. All patient questions answered MAPS reviewed and it was appropriate. I have spent 31 minutes on patient care today. Dr Harrington was available by phone for the evaluation of this patient. The time was used to review the ms dical records including relevant urine studies and Prescription history (MAPs), review of the available imaging, evaluation and examination of the patient, coordination of care with the medical staff and if applicable referring physicians, as well as creation of the medical record Objective - Vital Signs Vital signs: Vital Signs Temp 98.2 F 08/22/21 09:43 Pulse 80 08/22/21 09:43 Resp 16 08/22/21 09:43 BP 124/61 08/22/21 09:43 Pulse Ox 92 L 08/22/21 09:43 Intake & Output 08/21/21 08/22/21 08/22/21 18:59 06:59 18:59 Weight 78.106 kg PQRS Measure Charge Sheet Mode of Arrival: Ambulatory - Pain Location Lower Back Non-Pharmacological Interventions: Chiropractic Treatment, Heat, Home Exercise, Inactivity, Physical Therapy, Position/Reposition, Stretching Pharmacological Interventions: Block, Epidural, PRN Medication, Topical Medication PQRS Narrative: Smoking Status Never smoker Blood Pressure 124/61 Pain Intensity [Lower Back] 1 Scale Used Numeric (1 - 10) Hx Alcohol Use (MH) No Home Medications: Ambulatory Orders Imipramine HCl [Tofranil] 200 mg PO HS 08/22/18 clonazePAM [KlonoPIN] 2 mg PO TID 08/22/18 Acetaminophen Tab [Tylenol Tab] 1,000 mg PO Q8H PRN 05/16/20 Brexpiprazole [Rexulti] 1 mg PO DAILY 05/16/20 Gabapentin [Neurontin] 600 mg PO TID 05/16/20 Levothyroxine Sodium [Synthroid] 125 mcg PO DAILY 05/16/20 Pantoprazole [Protonix] 40 mg PO DAILY 05/16/20 Pyridostigmine [Mestinon] 60 mg PO Q6H PRN 05/16/20 Ibuprofen 600 mg PO Q6HR PRN 08/19/20 Cyanocobalamin (Vitamin B-12) [Vitamin B-12] 1,000 mcg PO DAILY 11/17/20
== END ==
LOC: PNWHC3 09:15
PROVIDERS: ATTEND Physician Assistant Medical
DX: M51.36 Other intervertebral disc degeneration, lumbar region (principal); M47.816 Spondylosis without myelopathy or radiculopathy, lumbar region; G89.29 Other chronic pain; Z88.5 Allergy status to narcotic agent
CPT/HCPCS: 99211

== ENCOUNTER 2021-10-14 11:47 | Emergency (ER) | payer MEDICARE, OTHER ==
[2021-10-14 11:52] VITALS: TEMP 98
[2021-10-14] MEDS ORDERED: ACETAMINOPHEN TAB 500 MG TAB PO STA (12:30)
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
--- NOTE | 2021-10-14 12:58 | XR ---
EXAMINATION TYPE: XR chest 2V DATE OF EXAM: 10/14/2021 COMPARISON: Chest x-ray August 22, 2018 HISTORY: Difficult exam breathing. TECHNIQUE: Frontal and lateral views of the chest are obtained. FINDINGS: Chronic left basilar opacity. Somewhat low lung volumes again seen. There is no new suspici ous focal air space opacity, pleural effusion, or pneumothorax seen. The cardiac silhouette size rem ains within normal limits. The osseous structures are intact. Cholecystectomy clips are redemonstra lorraine. IMPRESSION: Chronic changes without acute pulmonary process.
[2021-10-14 13:21] LABS: Basophils # (A) 0.1 k/uL (0-0.2); Basophils % (A) 1 %; Eosinophils # (A) 0.2 k/uL (0-0.7); Eosinophils % (A) 3 %; HCT 36.6 % (34.0-46.0); HGB 11.6 gm/dL (11.4-16.0); Lymphocytes % (A) 30 %; MCH 27.8 pg (25.0-35.0); MCHC 31.8 g/dL (31.0-37.0); MCV 87.3 fL (80.0-100.0); Mean Platelet Volume 7.4; Monocytes # (A) 0.4 k/uL (0-1.0); Monocytes % (A) 6 %; Neutrophils # (A) 3.9 k/uL (1.3-7.7); Neutrophils % (A) 58 %; Platelet Count 209 k/uL (150-450); RBC 4.19 m/uL (3.80-5.40); RDW 14.4 % (11.5-15.5); WBC 6.7 k/uL (3.8-10.6)
[2021-10-14 13:36] LABS: INR 0.9 (<1.2); Partial Thromboplastin Time 24.9 sec (22.0-30.0)
[2021-10-14 13:45] LABS: ALT 15 U/L (4-34); AST 20 U/L (14-36); African American GFR (CKD) 88 (>60 ml/min/1.73 sqM); Albumin 3.8 g/dL (3.5-5.0); Alkaline Phosphatase 86 U/L (38-126); Anion Gap -1 mmol/L; Blood Urea Nitrogen 14 mg/dL (7-17); Calcium 8.8 mg/dL (8.4-10.2); Carbon Dioxide 30 mmol/L (22-30); Chloride 111 mmol/L (98-107); Glucose 96 mg/dL (74-99); Non-African American GFR(CKD) 76 (>60 ml/min/1.73 sqM); Potassium 4.2 mmol/L (3.5-5.1); Sodium 140 mmol/L (137-145); Total Bilirubin 0.3 mg/dL (0.2-1.3); Total Protein 6.9 g/dL (6.3-8.2)
[2021-10-14 14:59] LABS: Appearance,Urine Cloudy (Clear); Bacteria,Urine Occasional /hpf; Bilirubin,Urine Negative (Negative); Blood,Urine Negative (Negative); Color,Urine Light Yellow; Glucose,Urine (UA) Negative (Negative); Ketones,Urine Negative (Negative); Leukocyte Esterase,Urine Large (Negative); Mucus,Urine Rare /hpf; Nitrite,Urine Negative (Negative); PH, Urine 6.5 (5.0-8.0); Protein,Urine Negative (Negative); RBC,Urine 3 /hpf (0-5); Squamous Epithelial Cell,Urine 1 /hpf (0-4); Urobilinogen,Urine <2.0 mg/dL (<2.0); WBC,Urine >182 /hpf (0-5)
[2021-10-14] MEDS ORDERED: FUROSEMIDE 20 MG TAB PO STA (15:04)
[2021-10-14 15:58] VITALS: BP 126/86; PULSE 94; RESP 18
--- NOTE | 2021-10-15 06:55 | ED ---
Medical Decision Making - Lab Data Result diagrams: 10/14/21 13:01 10/14/21 13:01 Lab Results 10/14/21 10/14/21 10/14/21 Range/Units 13:01 13:01 13:01 WBC 6.7 (3.8-10.6) k/uL RBC 4.19 (3.80-5.40) m/uL Hgb 11.6 (11.4-16.0) gm/dL Hct 36.6 (34.0-46.0) % MCV 87.3 (80.0-100.0) fL MCH 27.8 (25.0-35.0) pg MCHC 31.8 (31.0-37.0) g/dL RDW 14.4 (11.5-15.5) % Plt Count 209 (150-450) k/uL MPV 7.4 Neutrophils % 58 % Lymphocytes % 30 % Monocytes % 6 % Eosinophils % 3 % Basophils % 1 % Neutrophils # 3.9 (1.3-7.7) k/uL Lymphocytes # 2.0 (1.0-4.8) k/uL Monocytes # 0.4 (0-1.0) k/uL Eosinophils # 0.2 (0-0.7) k/uL Basophils # 0.1 (0-0.2) k/uL PT 10.0 (9.0-12.0) sec INR 0.9 (<1.2) APTT 24.9 (22.0-30.0) sec D-Dimer 0.35 (<0.60) mg/L FEU Sodium (137-145) mmol/L Potassium (3.5-5.1) mmol/L Chloride (98-107) mmol/L Carbon Dioxide (22-30) mmol/L Anion Gap mmol/L BUN (7-17) mg/dL Creatinine (0.52-1.04) mg/dL Est GFR (CKD-EPI)AfAm (>60 ml/min/1.73 sqM) Est GFR (CKD-EPI)NonAf (>60 ml/min/1.73 sqM) Glucose (74-99) mg/dL Plasma Lactic Acid Adalid (0.7-2.0) mmol/L Calcium (8.4-10.2) mg/dL Magnesium (1.6-2.3) mg/dL Total Bilirubin (0.2-1.3) mg/dL AST (14-36) U/L ALT (4-34) U/L Alkaline Phosphatase (38-126) U/L Troponin I (0.000-0.034) ng/mL NT-Pro-B Natriuret Pep pg/mL Total Protein (6.3-8.2) g/dL Albumin (3.5-5.0) g/dL TSH (0.465-4.680) mIU/L Urine Color Light Yellow Urine Appearance Cloudy H (Clear) Urine pH 6.5 (5.0-8.0) Ur Specific [place] 1.010 (1.001-1.035) Urine Protein Negative (Negative) Urine Glucose (UA) Negative (Negative) Urine Ketones Negative (Negative) Urine Blood Negative (Negative) Urine Nitrite Negative (Negative) Urine Bilirubin Negative (Negative) Urine Urobilinogen <2.0 (<2.0) mg/dL Ur Leukocyte Esterase Large H (Negative) Urine RBC 3 (0-5) /hpf Urine WBC >182 H (0-5) /hpf Urine WBC Clumps Few H (None) /hpf Ur Squamous Epith Cells 1 (0-4) /hpf Urine Bacteria Occasional H (None) /hpf Urine Mucus Rare H (None) /hpf 10/14/21 10/14/21 10/14/21 Range/Units 13:01 13:01 13:01 WBC (3.8-10.6) k/uL RBC (3.80-5.40) m/uL Hgb (11.4-16.0) gm/dL Hct (34.0-46.0) % MCV (80.0-100.0) fL MCH (25.0-35.0) pg MCHC (31.0-37.0) g/dL RDW (11.5-15.5) % Plt Count (150-450) k/uL MPV Neutrophils % % Lymphocytes % % Monocytes % % Eosinophils % % Basophils % % Neutrophils # (1.3-7.7) k/uL Lymphocytes # (1.0-4.8) k/uL Monocytes # (0-1.0) k/uL Eosinophils # (0-0.7) k/uL Basophils # (0-0.2) k/uL PT (9.0-12.0) sec INR (<1.2) APTT (22.0-30.0) sec D-Dimer (<0.60) mg/L FEU Sodium 140 (137-145) mmol/L Potassium 4.2 (3.5-5.1) mmol/L Chloride 111 H (98-107) mmol/L Carbon Dioxide 30 (22-30) mmol/L Anion Gap -1 mmol/L BUN 14 (7-17) mg/dL Creatinine 0.85 (0.52-1.04) mg/dL Est GFR (CKD-EPI)AfAm 88 (>60 ml/min/1.73 sqM) Est GFR (CKD-EPI)NonAf 76 (>60 ml/min/1.73 sqM) Glucose 96 (74-99) mg/dL Plasma Lactic Acid Adalid 1.3 (0.7-2.0) mmol/L Calcium 8.8 (8.4-10.2) mg/dL Magnesium 2.0 (1.6-2.3) mg/dL Total Bilirubin 0.3 (0.2-1.3) mg/dL AST 20 (14-36) U/L ALT 15 (4-34) U/L Alkaline Phosphatase 86 (38-126) U/L Troponin I <0.012 (0.000-0.034) ng/mL NT-Pro-B Natriuret Pep pg/mL Total Protein 6.9 (6.3-8.2) g/dL Albumin 3.8 (3.5-5.0) g/dL TSH 1.720 (0.465-4.680) mIU/L Urine Color Urine Appearance (Clear) Urine pH (5.0-8.0) Ur Specific [place] (1.001-1.035) Urine Protein (Negative) Urine Glucose (UA) (Negative) Urine Ketones (Negative) Urine Blood (Negative) Urine Nitrite (Negative) Urine Bilirubin (Negative) Urine Urobilinogen (<2.0) mg/dL Ur Leukocyte Esterase (Negative) Urine RBC (0-5) /hpf Urine WBC (0-5) /hpf Urine WBC Clumps (None) /hpf Ur Squamous Epith Cells (0-4) /hpf Urine Bacteria (None) /hpf Urine Mucus (None) /hpf 10/14/21 Range/Units 13:01 WBC (3.8-10.6) k/uL RBC (3.80-5.40) m/uL Hgb (11.4-16.0) gm/dL Hct (34.0-46.0) % MCV (80.0-100.0) fL MCH (25.0-35.0) pg MCHC (31.0-37.0) g/dL RDW (11.5-15.5) % Plt Count (150-450) k/uL MPV Neutrophils % % Lymphocytes % % Monocytes % % Eosinophils % % Basophils % % Neutrophils # (1.3-7.7) k/uL Lymphocytes # (1.0-4.8) k/uL Monocytes # (0-1.0) k/uL Eosinophils # (0-0.7) k/uL Basophils # (0-0.2) k/uL PT (9.0-12.0) sec INR (<1.2) APTT (22.0-30.0) sec D-Dimer (<0.60) mg/L FEU Sodium (137-145) mmol/L Potassium (3.5-5.1) mmol/L Chloride (98-107) mmol/L Carbon Dioxide (22-30) mmol/L Anion Gap mmol/L BUN (7-17) mg/dL Creatinine (0.52-1.04) mg/dL Est GFR (CKD-EPI)AfAm (>60 ml/min/1.73 sqM) Est GFR (CKD-EPI)NonAf (>60 ml/min/1.73 sqM) Glucose (74-99) mg/dL Plasma Lactic Acid Adalid (0.7-2.0) mmol/L Calcium (8.4-10.2) mg/dL Magnesium (1.6-2.3) mg/dL Total Bilirubin (0.2-1.3) mg/dL AST (14-36) U/L ALT (4-34) U/L Alkaline Phosphatase (38-126) U/L Troponin I (0.000-0.034) ng/mL NT-Pro-B Natriuret Pep 71 pg/mL Total Protein (6.3-8.2) g/dL Albumin (3.5-5.0) g/dL TSH (0.465-4.680) mIU/L Urine Color Urine Appearance (Clear) Urine pH (5.0-8.0) Ur Specific [place] (1.001-1.035) Urine Protein (Negative) Urine Glucose (UA) (Negative) Urine Ketones (Negative) Urine Blood (Negative) Urine Nitrite (Negative) Urine Bilirubin (Negative) Urine Urobilinogen (<2.0) mg/dL Ur Leukocyte Esterase (Negative) Urine RBC (0-5) /hpf Urine WBC (0-5) /hpf Urine WBC Clumps (None) /hpf Ur Squamous Epith Cells (0-4) /hpf Urine Bacteria (None) /hpf Urine Mucus (None) /hpf Disposition Clinical Impression: Dependent edema, UTI (urinary tract infection) Disposition: HOME SELF-CARE Condition: Good Instructions (If sedation given, give patient instructions): Edema (ED) Additional Instructions: Take Lasix 20 mg once a day for the next 3 days. Elevate legs at home and wear compression socks. Follow-up with the primary care doctor next week. Return to the emergency room with any new or concerning symptoms including difficulty in breathing or chest pain. Prescriptions: Cephalexin [Keflex] 500 mg PO BID 7 Days #14 cap Furosemide [Lasix] 20 mg PO DAILY 3 Days #3 tab Is patient prescribed a controlled substance at d/c from ED?: No Referrals: Insesa Simmons MD [Primary Care Provider] - 1-2 days Time of Disposition: 06:55
== END 2021-10-14 15:58 | disposition home or self-care (01) ==
LOC: EC 11:47
DX: R60.0 Localized edema (principal); K21.9 Gastro-esophageal reflux disease without esophagitis; E07.9 Disorder of thyroid, unspecified; F41.9 Anxiety disorder, unspecified; F32.A Depression, unspecified; Z90.49 Acquired absence of other specified parts of digestive tract; Z90.710 Acquired absence of both cervix and uterus
CPT/HCPCS: 36415; 71046; 80053; 81001; 83605; 83735; 83880; 84443; 84484; 85025; 85379; 85610; 85730; 87086; 93005; 99284

== ENCOUNTER → 2021-11-16 | Outpatient (CLI) | payer MEDICARE, OTHER ==
--- NOTE | 2021-11-17 09:36 | MM ---
Reason for Exam: Screening (asymptomatic). Last mammogram was performed 1 year(s) and 3 month(s) ago. Patient History: Menarche at age 9. Patient has no children. Left ovary removed at age 38. Right ovary removed at age 38. Hysterectomy at age 38. Postmenopausal. Estrogen for 4 years from age 38 until age 42. Cyst Aspiration on the Right side. 12/18/2001, Benign Excisional Biopsy on the right side. Paternal aunt had breast cancer, age 45. Risk Values: Tegan 5 year model risk: 1.9%. NCI Lifetime model risk: 10.9%. Prior Study Comparison: 04/12/2018 Bilateral Screening Mammogram, [facility]. 07/28/2019 Bilateral Screening Mammogram, [facility]. 08/17/2020 Bilateral Diagnostic Mammogram, [facility]. Tissue Density: The breast tissue is heterogeneously dense. This may lower the sensitivity of mammography. Findings: Analyzed By CAD. There are some scattered benign-appearing round calcifications redemonstrated throughout both breasts. Benign appearing bilateral vascular calcifications are also redemonstrated. There is no suspicious group of microcalcifications or new suspicious mass in either breast. Overall Assessment: Benign, BI-RAD 2 Management: Screening Mammogram of both breasts in 1 year. A clinical breast exam by your physician is recommended on an annual basis and results should be correlated with mammographic findings. Electronically signed and approved by: Yasir Garcia M.D.
== END | disposition home or self-care (01) ==
LOC: RADMAMWWP 16:02
PROVIDERS: ATTEND Family Medicine
DX: Z12.31 Encounter for screening mammogram for malignant neoplasm of breast (principal); Z78.0 Asymptomatic menopausal state; Z80.3 Family history of malignant neoplasm of breast; Z90.721 Acquired absence of ovaries, unilateral
CPT/HCPCS: 77063; 77067

== ENCOUNTER → 2021-11-17 | Outpatient (CLI) | payer MEDICARE, OTHER ==
[2021-11-17 10:19] VITALS: BP 116/63; PULSE 89; RESP 18; TEMP 97.8
--- NOTE | 2021-11-17 10:22 | P.PN ---
Subjective Progress Note Date: 11/17/21 Principal diagnosis: A 56 yr old female with a history of severe and chronic low back pain secondary to lumbar degenerative disc diseases and lumbar spondylosis with facet arthropathy presents today for evaluation s/p L iliosacral ligament injection. She states she experienced 90% relief x 3 weeks s/p procedure. Pain level is currently at 2/10 in intensity, localized to the L aspect of the sacrum with radiation of pain "across like a band" in the spine as well as sharp pain towards the "inner L hip." Pain is sharp in character and accompanied with spasms & nausea. Does not shoot towards the groin or inner thigh. Pain escalates as high as 10/10 in intensity with provocation of weight bearing activities. Pain is alleviated with topicals, PT in 2019, home based exercise regimen, heat application, chiropractic treatment once in the past which worsened pain, repositioning and rest. Interventional pain procedures completed include L Iliosacral ligament injection Patient is currently on Biofreeze gel Patient denies any side effects of the medication(s), denies excessive drowsiness or sleepiness, denies suicidal ideation and reports that the current pain medication is helping to control the pain and improve activities of daily living. Patient denies any motor or sensory deficits. Patient denies any fever or night sweats, denies any change in the bowel movements or urination. Physical Examination: -Constitutional: Cooperative. Not in acute distress . -HEENT: Neck is supple. No lymphadenopathy. No thyromegaly. Normal thyroid size. Eyes: No ptosis , no icterus, no photophobia. ENT: No auditory deficits. Normal oropharynx. No Thrush. - Respiratory: Chest clear to auscultations bilaterally. No wheezing. No rhonchi. - Cardiovascular: Regular rate and rhythm. S1 / S2 , no S3 , no S4. - Gastrointestinal: Abdomen soft no tenderness. Bowel sounds positive in all four quadrants. No organomegaly. - Genitourinary: Deferred. - Neurologic: Cranial nerve II to XII intact. No focal neurological deficits. - Psychatric: Alert & oriented x 3. Matching mood & appropriate affect. Judgment and insight intact. - Lymphatic: No Lymphadenopathy. - Musculoskeletal: Cervical spine: Muscle bulk/ tone/ strength in the bilateral upper extremities normal Vertebral body tenderness to palpation over Facet loading test positive Thoracic spine Muscle bulk / tone/ strength in the bilateral paraspinal muscles normal Vertebral body tender to palpation over Facet loading test positive Lumbar spine: Motor bulk/ tone/ strength lower extremities , thigh and legs : 5/5 Deep tendon reflexes : Normal Knee Jerk. Normal Ankle Jerk . Vertebral body tenderness to palpation over Lumbar Facet Loading Test positive Straight Leg Raise: positive at 30 degrees right side/ left side Gaenslen's Test positive Sacral spine : Severe tenderness over the Sacroiliac joint: right side < left side with deep palpation Range of motion: Flexion of the lumbar spine <60 degrees Range of motion: Extension of the lumbar spine <20 degrees Gaenslen's Test positive Rogelio's Test positive Ngoc test: positive right side / left side Thigh Thrust Test Sacral Thrust Test Assessment and plan: Chronic low back pain secondary to lumbar degenerative disc disease , lum bar spondylosis with facet arthropathy without myelopathy Recommendation of L iliosacral ligament injection #2. Risks, benefits of procedure discussed and pt verbalized understanding. Denies anticoagulant use or medical history of diabetes. May also consider SI joint injection at a later time if needed. All patient questions answered MAPS reviewed and it was appropriate. I have spent 31 minutes on patient care today. Dr Harrington was available by phone for the evaluation of this patient. The time was used to review the medical records including relevant urine studies and Prescription history (MAPs), review of the available imaging, evaluation and examination of the patient, coordination of care with the medical staff and if applicable referring physicians, as well as creation of the medical record PQRS Measure Charge Sheet Mode of Arrival: Ambulatory PQRS Narrative: Smoking Status Never smoker Blood Pressure 116/63 Pain Intensity [Lower Back] 2 Scale Used Numeric (1 - 10) Hx Alcohol Use (MH) No Home Medications: Ambulatory Orders Imipramine HCl [Tofranil] 200 mg PO HS 08/22/18 clonazePAM [KlonoPIN] 2 mg PO TID 08/22/18 Brexpiprazole [Rexulti] 1 mg PO DAILY 05/16/20 Levothyroxine Sodium [Synthroid] 125 mcg PO DAILY 05/16/20 Pantoprazole [Protonix] 40 mg PO DAILY 05/16/20 Pyridostigmine [Mestinon] 60 mg PO Q6H 05/16/20 Metoprolol Succinate (ER) [Toprol Xl] 25 mg PO DAILY 09/16/21 Furosemide [Lasix] 20 mg PO DAILY 3 Days #3 tab 10/14/21 Gabapentin 600 mg PO TID 10/14/21 Ibuprofen [Motrin Ib] 600 mg PO QID 10/14/21 QUEtiapine [SEROquel] 25 mg PO TID@0630,1200,1700 10/14/21 QUEtiapine [SEROquel] 50 mg PO HS 10/14/21 Cephalexin [Keflex] 500 mg PO BID 7 Days #14 cap 10/15/21
== END ==
LOC: PNWHC3 09:31
PROVIDERS: ATTEND Specialist
DX: M54.42 Lumbago with sciatica, left side (principal); M51.36 Other intervertebral disc degeneration, lumbar region; M47.816 Spondylosis without myelopathy or radiculopathy, lumbar region; G89.29 Other chronic pain; Z88.8 Allergy status to other drugs, medicaments and biological substances
CPT/HCPCS: 99211

== ENCOUNTER → 2021-12-29 | Outpatient (CLI) | payer MEDICARE, OTHER ==
--- NOTE | 2021-12-29 16:30 | MR ---
MRI CERVICAL SPINE: CLINICAL HISTORY: Cervicalgia. Kyphosis. Following treatment 3 months ago. Neck pain into bilateral s houlders with headaches for 3 to 4 months. TECHNIQUE: Multiplanar, multisequence imaging of the cervical spine is performed without IV contrast. COMPARISON: None. FINDINGS: Sagittal images of the cervical spine show the craniocervical junction to appear within nor mal limits. The cervical and upper thoracic spinal cord is normal in course, caliber, and signal. Sl ight levoconvex scoliosis centered in the upper thoracic spine. Subtle grade 1 retrolisthesis C3 on C4. The vertebral body and intravertebral disk heights are normal. The bone marrow signal intensity is within normal limits. Axial images show C2-C3 level to appear within normal limits. Axial images at C3-C4 level through C5-C6 levels show some uncovertebral facet degenerative changes c ausing mild left-sided neural foraminal narrowing at these levels. Mild broad-based posterior disc pr otrusion at C5-C6 and C6-C7 levels mildly efface the anterior thecal sac. Axial images at C7-T1 level appears within normal limits. IMPRESSION: Mild multilevel degenerative changes as detailed above.
== END | disposition home or self-care (01) ==
LOC: RADMRIMAIN 14:36
PROVIDERS: ATTEND Orthopaedic Surgery Orthopaedic Surgery of the Spine
DX: M40.202 Unspecified kyphosis, cervical region (principal); M50.323 Other cervical disc degeneration at C6-C7 level; M99.71 Connective tissue and disc stenosis of intervertebral foramina of cervical region
CPT/HCPCS: 72141

== ENCOUNTER → 2022-05-26 | Outpatient (CLI) | payer MEDICARE, OTHER | END | disposition home or self-care (01) | LOC: LABWHC1 09:26 | PROVIDERS: ATTEND Psychiatry & Neurology Neurology | DX: G70.00 Myasthenia gravis without (acute) exacerbation (principal) | CPT/HCPCS: 36415 ==

== ENCOUNTER 2022-09-29 17:40 | Observation (INO) | payer MEDICARE, OTHER ==
[2022-09-29] MEDS ORDERED: ASPIRIN 325 MG TAB PO STA (18:40)
[2022-09-29] MEDS ORDERED: NITROGLYCERIN OINT 1 INCH/GM PACKET TOPICAL STA (18:44)
[2022-09-29 18:56] LABS: Basophils % (A) 1 %; Eosinophils # (A) 0.2 k/uL (0-0.7); Eosinophils % (A) 3 %; HGB 13.5 gm/dL (11.4-16.0); Lymphocytes # (A) 2.3 k/uL (1.0-4.8); Lymphocytes % (A) 28 %; MCH 27.3 pg (25.0-35.0); MCHC 32.8 g/dL (31.0-37.0); MCV 83.3 fL (80.0-100.0); Monocytes # (A) 0.6 k/uL (0-1.0); Monocytes % (A) 7 %; Neutrophils # (A) 4.8 k/uL (1.3-7.7); Neutrophils % (A) 59 %; Platelet Count 239 k/uL (150-450); RBC 4.93 m/uL (3.80-5.40); RDW 13.5 % (11.5-15.5); WBC 8.1 k/uL (3.8-10.6)
--- NOTE | 2022-09-29 18:56 | XR ---
EXAMINATION TYPE: XR chest 2V DATE OF EXAM: 09/29/2022 6:45 PM COMPARISON: Chest radiographs from 03/26/2022 TECHNIQUE: XR chest 2V Frontal and lateral views of the chest. CLINICAL INDICATION:Female, 57 years old with history of Chest Pain; FINDINGS: Lungs/Pleura: There is flattening of the diaphragm with increased lucency of the lungs. No evidence o f pneumothorax, pleural effusion or focal consolidation. Pulmonary vascularity: Unremarkable. Heart/mediastinum: Cardiomediastinal silhouette is unremarkable. Musculoskeletal: No acute osseous pathology. IMPRESSION: 1. No acute cardiopulmonary disease process. 2. COPD changes.
[2022-09-29 19:17] LABS: Albumin 4.2 g/dL (3.5-5.0); Calcium 9.1 mg/dL (8.4-10.2); Magnesium 2.2 mg/dL (1.6-2.3); Potassium 3.7 mmol/L (3.5-5.1); Total Bilirubin 0.3 mg/dL (0.2-1.3); Total Protein 7.5 g/dL (6.3-8.2)
[2022-09-29 19:27] LABS: INR 0.9 (<1.2); Partial Thromboplastin Time 24.9 sec (22.0-30.0); Prothrombin Time 10.1 sec (9.0-12.0)
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
[2022-09-29] MEDS ORDERED: NALOXONE 0.4 MG/ML 1 ML VIAL IV PRN (20:56)
[2022-09-30 03:27] VITALS: RESP 16
[2022-09-30 08:36] VITALS: TEMP 97.5
[2022-09-30 09:49] LABS: Basophils # (A) 0.08 X 10*3/uL (0.00-0.10); Basophils % (A) 1.5 %; Eosinophils # (A) 0.29 X 10*3/uL (0.04-0.35); Eosinophils % (A) 5.4 %; HCT 38.8 % (37.2-46.3); HGB 12.4 g/dL (12.0-15.0); Immature Grans, Automated 0.2 %; Lymphocytes # (A) 1.85 X 10*3/uL (0.90-5.00); Lymphocytes % (A) 34.3 %; MCH 27.1 pg (27.0-32.0); MCV 84.7 fL (80.0-97.0); Mean Platelet Volume 10.1 fL (9.5-12.2); Monocytes # (A) 0.64 X 10*3/uL (0.20-1.00); Monocytes % (A) 11.9 %; NRBC Per 100 WBC 0 /100 WBCS (0.0-0.0); Neutrophils # (A) 2.52 X 10*3/uL (1.80-7.70); Neutrophils % (A) 46.7 %; Platelet Count 220 X 10*3/uL (140-440); RBC 4.58 X 10*6/uL (4.10-5.20); RDW 13.8 % (11.5-14.5); WBC 5.39 X 10*3/uL (4.50-10.00)
[2022-09-30 09:53] LABS: African American GFR (CKD) 68.1 (60.0-200.0); BUN/Creat Ratio 16.15 Ratio (12.00-20.00); Blood Urea Nitrogen 16.8 mg/dL (9.0-27.0); Calcium 9.1 mg/dL (8.7-10.3); Carbon Dioxide 29.9 mmol/L (20.0-27.5); Non-African American GFR(CKD) 58.8 (60.0-200.0); Potassium 3.7 mmol/L (3.5-5.5)
[2022-09-30] MEDS ORDERED: NITROGLYCERIN SL TABS 0.4 MG TAB SUBLINGUAL PRN (11:11)
[2022-09-30] MEDS ORDERED: ALPRAZolam 0.25 MG TAB PO PRN (11:11)
[2022-09-30] MEDS ORDERED: ATORVASTATIN 80 MG TAB PO STA (11:11)
[2022-09-30] MEDS ORDERED: ASPIRIN 325 MG TAB PO STA (11:11)
[2022-09-30] MEDS ORDERED: ALPRAZolam 0.5 MG TAB PO PRN (11:11)
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
[2022-09-30] MEDS ORDERED: IV FLUID CONTINUATION 1,000 ML IV ONE (13:45)
[2022-09-30] MEDS ORDERED: HEPARIN SODIUM 1,000 UN/ML (10ML VL) ONE (13:50)
[2022-09-30] MEDS ORDERED: fentaNYL (PF) 50 MCG/ML 2 ML AMP ONE (13:50)
[2022-09-30] MEDS ORDERED: VERAPAMIL 2.5 MG/ML 2 ML AMP ONE (13:50)
[2022-09-30] MEDS ORDERED: fentaNYL (PF) 50 MCG/ML 2 ML AMP IV ONE (14:11)
[2022-09-30] MEDS ORDERED: MIDAZOLAM 2 MG/2 ML VIAL IV ONE ×2 (14:11)
[2022-09-30] MEDS ORDERED: LIDOCAINE 1% INJ 10MG/ML (5 ML VIAL-PF) SQ ONE (14:14)
[2022-09-30] MEDS ORDERED: VERAPAMIL SYRINGE (5 MG/10 ML) INTRAARTER ONE (14:14)
[2022-09-30] MEDS ORDERED: HEPARIN SODIUM 1,000 UN/ML (10ML VL) IV ONE (14:17)
[2022-09-30] MEDS ORDERED: IOPAMIDOL-370 125ML BTL INJ ONE (14:24)
[2022-09-30] MEDS ORDERED: clonazePAM 1 MG TAB PO PRN (15:01)
[2022-09-30] MEDS ORDERED: ALBUTEROL HFA INHALER INHALATION PRN (15:01)
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
[2022-09-30 17:18] VITALS: BP 100/66; PULSE 86
--- NOTE | 2022-10-01 00:54 | P.CARDCATH ---
Description of Procedure: PROCEDURES PERFORMED: Left heart catheterization, bilateral coronary angiography INDICATION: Chest pain concerning for unstable angina CONSENT:I have discussed the risks, benefits and alternative therapies for the above-mentioned procedure and for both sedation/analgesia as well as necessary blood product administration, if indicated, as they pertain to this patient. The patient has indicated understanding and acceptance of the risks and procedures discussed. PROCEDURE: After the risks, benefits and alternatives of the above mentioned procedure explained in detail with the patient, informed consent was obtained. Patient was taken to the catheterization lab and prepped and draped in usual fashion. 1% lidocaine was used to anesthetize the right radial artery. A 6- Azeri sheath was placed in the right radial artery using modified Seldinger technique. Left coronary angiography was performed with a 5-Azeri JL 3.5 cath eter and right coronary angiography was performed with a 5-Azeri JR5 catheter in various views. A 5-Azeri FR5 catheter was inserted into the left ventricle and pressure measurements were obtained. The right radial sheath was removed and a TR band was placed with hemostasis achieved. The patient tolerated the procedure well. Patient was transported back to the post catheterization holding area in stable condition. Conscious Sedation: Patient was monitored under the direct supervision of myself for conscious sedation using Versed and fentanyl for a total duration of 10 minutes HEMODYNAMICS: Aorta: 124/79 LV: An 21/3, LVEDP 9 SELECTIVE CORONARY ARTERIOGRAPHY: LEFT MAIN: The left main is a large caliber vessel which bifurcates into the LAD and circumflex. There is no significant stenosis. LEFT ANTERIOR DESCENDING CORONARY ARTERY: LAD is a large caliber vessel which wraps around to the apex. There is no significant stenosis. LEFT CIRCUMFLEX CORONARY ARTERY: Left circumflex is a moderate caliber vessel without significant stenosis. RIGHT CORONARY ARTERY: The right coronary artery is a large caliber vessel which gives off a PDA and PLV branch and is the dominant vessel. There is no significant stenosis. FINAL IMPRESSION: 1. Normal coronary arteries as described above. 2. Normal left sided filling pressures PLAN: 1. Aggressive risk factor modification per most recent ACC/AHA guidelines. 2. Follow-up in the office in 1-2 weeks.
[2022-10-01] MEDS ORDERED: HEPARIN SODIUM,PORCINE 2,500 UNIT in SODIUM CHLORIDE 0.9% 250 ML IRRIGATION PRN (07:00)
[2022-10-01] MEDS ORDERED: HEPARIN SODIUM,PORCINE 10,000 UNIT in SODIUM CHLORIDE 0.9% 1,000 ML IRRIGATION PRN (07:00)
--- NOTE | 2022-10-01 08:30 | P.DS ---
Providers Date of admission: 09/29/22 20:58 Expected date of discharge: 09/30/22 Attending physician: Epi Cunha MD Consults: 09/29/22 20:56 Consult Physician Urgent Consulting Provider: [facility] Consult Reason/Comments: Acute chest pain Do you want consulting provider notified?: Yes Primary care physician: Inessa Simmons [place] [facility] Course: Discharge diagnoses; Chest pain EKG changes Myasthenia gravis Hypothyroidism Hypertension Hospital course; patient is a 57-year-old lady with past medical significant for myasthenia gravis, hypertension presented to the ER because of chest pressure that started 2 days ago. Patient stated that she was all right yesterday morning when started complaining of palpitations that was accompanied by chest pressure that was central in location, nonradiating. There was no aggravating or relieving factors associated with this chest pressure. Because of this chest patient patient came to the ER. There was no complaint of shortness of breath. Denied any nausea or vomiting. Denies any abdominal pain. Initial lab work done white count of 8.1, hemoglobin 13.5, pleasant 39, sodium 140, potassium 3.7, chloride 104, BUN 16 creatinine 1.08, troponin was normal Initial EKG showed sinus tachycardia with left bundle branch block however on repeat showed sinus rhythm with narrow QRS however does have diffuse T-wave inversions V2 through V6 as well as inferiorly. Patient was admitted to internal medicine for further evaluation and treatment Cardiology evaluated the patient recommended doing cardiac cath. Cardiac cath done showed following LEFT MAIN: The left main is a large caliber vessel which bifurcates into the LAD and circumflex. There is no significant stenosis. LEFT ANTERIOR DESCENDING CORONARY ARTERY: LAD is a large caliber vessel which wraps around to the apex. There is no significant stenosis. LEFT CIRCUMFLEX CORONARY ARTERY: Left circumflex is a moderate caliber vessel without significant stenosis. RIGHT CORONARY ARTERY: The right coronary artery is a large caliber vessel which gives off a PDA and PLV branch and is the dominant vessel. There is no significant stenosis. FINAL IMPRESSION: 1. Normal coronary arteries as described above. 2. Normal left sided filling pressures Cardiology recommended aggressive risk factor modification, outpatient follow- up, cleared patient for discharge PHYSICAL EXAMINATION: GENERAL: The patient is alert and oriented x3, not in any acute distress. Well developed, well nourished. HEENT: Pupils are round and equally reacting to light. EOMI. No scleral icterus. No conjunctival pallor. Normocephalic, atraumatic. No pharyngeal erythema. No thyromegaly. CARDIOVASCULAR: S1 and S2 present. No murmurs, rubs, or gallops. PULMONARY: Chest is clear to auscultation, no wheezing or crackles. ABDOMEN: Soft, nontender, nondistended, normoactive bowel sounds. No palpable organomegaly. MUSCULOSKELETAL: No joint swelling or deformity. EXTREMITIES: No cyanosis, clubbing, or pedal edema. NEUROLOGICAL: Gross neurological examination did not reveal any focal deficits. SKIN: No rashes. Patient Condition at Discharge: Stable Plan - Discharge Summary Discharge Rx Participant: No New Discharge Prescriptions: Continue clonazePAM [KlonoPIN] 2 mg PO TID PRN PRN Reason: Anxiety Imipramine HCl [Tofranil] 200 mg PO HS Pyridostigmine [Mestinon] 60 mg PO QID Brexpiprazole [Rexulti] 1 mg PO DAILY Levothyroxine Sodium [Synthroid] 125 mcg PO DAILY Gabapentin 600 mg PO TID Empagliflozin [Jardiance] 10 mg PO DAILY Furosemide [Lasix] 40 mg PO DAILY Spironolactone [Aldactone] 25 mg PO DAILY Cyanocobalamin [Vitamin B-12] 1,000 mcg PO DAILY #30 tab Sucralfate [Carafate] 1 gm PO ACHS Metoprolol Succinate (ER) [Toprol XL] 25 mg PO DAILY QUEtiapine [SEROquel] 50 mg PO HS QUEtiapine [SEROquel] 25 mg PO TID@0700,1200,1600 Omeprazole 40 mg PO DAILY Losartan [Cozaar] 12.5 mg PO DAILY Albuterol Inhaler [Ventolin Hfa Inhaler] 2 puff INHALATION RT-Q4H PRN PRN Reason: Shortness Of Breath Discharge Medication List Imipramine HCl [Tofranil] 200 mg PO HS 08/22/18 [History] clonazePAM [KlonoPIN] 2 mg PO TID PRN 08/22/18 [History] Brexpiprazole [Rexulti] 1 mg PO DAILY 05/16/20 [History] Levothyroxine Sodium [Synthroid] 125 mcg PO DAILY 05/16/20 [History] Pyridostigmine [Mestinon] 60 mg PO QID 05/16/20 [History] Metoprolol Succinate (ER) [Toprol XL] 25 mg PO DAILY 09/16/21 [History] Gabapentin 600 mg PO TID 10/14/21 [History] QUEtiapine [SEROquel] 25 mg PO TID@0700,1200,1600 10/14/21 [History] QUEtiapine [SEROquel] 50 mg PO HS 10/14/21 [History] Albuterol Inhaler [Ventolin Hfa Inhaler] 2 puff INHALATION RT-Q4H PRN 03/26/22 [History] Empagliflozin [Jardiance] 10 mg PO DAILY 03/26/22 [History] Furosemide [Lasix] 40 mg PO DAILY 03/26/22 [History] Losartan [Cozaar] 12.5 mg PO DAILY 03/26/22 [History] Omeprazole 40 mg PO DAILY 03/26/22 [History] Spironolactone [Aldactone] 25 mg PO DAILY 03/26/22 [History] Cyanocobalamin [Vitamin B-12] 1,000 mcg PO DAILY #30 tab 03/28/22 [Rx] Sucralfate [Carafate] 1 gm PO ACHS 09/29/22 [History] Follow up Appointment(s)/Referral(s): Triston Kellogg DO [STAFF PHYSICIAN] - 1 Week (Call office on Sunday morning to schedule a follow up appointment with Dr. Kellogg for a Site Check in one week. ) Inessa Simmons MD [Primary Care Provider] - 1-2 days Patient Instructions/Handouts: After Radial Heart Catheterization (GEN) Activity/Diet/Wound Care/Special Instructions: See Activity Restrictions Instructions Discharge Disposition: HOME SELF-CARE
[2022-10-01] MEDS ORDERED: CYANOCOBALAMIN 500 MCG TAB PO SCH (09:00)
== END 2022-09-30 18:43 | disposition home or self-care (01) ==
LOC: EC 17:40 → 6NMEDSUR 20:58
PROVIDERS: ADMIT Internal Medicine; ATTEND Internal Medicine
DX: R07.89 Other chest pain (principal); R00.2 Palpitations; R00.0 Tachycardia, unspecified; R61 Generalized hyperhidrosis; R11.0 Nausea; R06.02 Shortness of breath; R94.31 Abnormal electrocardiogram [ECG] [EKG]; G70.00 Myasthenia gravis without (acute) exacerbation; I44.7 Left bundle-branch block, unspecified; I10 Essential (primary) hypertension; G40.909 Epilepsy, unspecified, not intractable, without status epilepticus; K21.9 Gastro-esophageal reflux disease without esophagitis; E03.9 Hypothyroidism, unspecified; F32.A Depression, unspecified; F41.9 Anxiety disorder, unspecified; E66.9 Obesity, unspecified; Z68.30 Body mass index [BMI] 30.0-30.9, adult; Z79.890 Hormone replacement therapy; Z79.84 Long term (current) use of oral hypoglycemic drugs; Z79.899 Other long term (current) drug therapy; Z88.8 Allergy status to other drugs, medicaments and biological substances; Z87.19 Personal history of other diseases of the digestive system; Z90.710 Acquired absence of both cervix and uterus; Z90.49 Acquired absence of other specified parts of digestive tract; Z80.8 Family history of malignant neoplasm of other organs or systems; Z80.51 Family history of malignant neoplasm of kidney; Z83.49 Family history of other endocrine, nutritional and metabolic diseases; Z82.49 Family history of ischemic heart disease and other diseases of the circulatory system
CPT/HCPCS: 99285; 36415; 93005; 93458; 83880; 80053; 80048; 83690; 83735; 84484 ×2; 85025 ×2; 85610; 85730; 71046; G0378 ×2; C1769; C1894; J2250; J2001; J3010; J1644; Q9967

== ENCOUNTER → 2022-11-22 | Outpatient (CLI) | payer MEDICARE, OTHER ==
--- NOTE | 2022-11-23 14:48 | MR ---
EXAMINATION TYPE: MR brain and iac wo/w con DATE OF EXAM: 11/22/2022 9:55 PM CLINICAL INDICATION:Female, 57 years old with history of R42; COMPARISON: CT 05/16/2020 TECHNIQUE: Multi planar, multi sequence imaging was performed through the brain. Specialized thin s equences were obtained through the internal auditory canals. Pre-and post gadolinium sequences were obtained. MR contrast: IV Contrast: 8 cc Gadavist FINDINGS: The arzola-white junctions, ventricular system, and cisterns appear unremarkable. Scattered foci of h igh T2 signal intensity are seen within the periventricular white matter. Midline structures show no abnormality. Diffusion-weighted imaging shows no evidence of restricted diffusion. The susceptibility weighted images do not reveal any evidence for micro-hemorrhage. The bone marrow signal is within normal limits. Paranasal sinuses and mastoid air cells: Mild scattered paranasal sinus disease. Visualized orbits: Orbital contents are intact. After administration of gadolinium, no abnormal enhancement is seen. The internal auditory canal sequences demonstrate no significant irregularity. The 7th cranial nerve s, 8 cranial nerves, and cerebellar pontine angles appear unremarkable. After the administration jose olinium, no abnormal enhancement is seen within the internal auditory canals. Vascular loop: None. IMPRESSION: 1. No evidence of intracranial mass nor acute/subacute CVA. 2. No evidence of internal auditory canal abnormality. 3. Nonspecific white matter changes, likely secondary to small vessel ischemic disease.
== END | disposition home or self-care (01) ==
LOC: RADMRIMAIN 20:45
PROVIDERS: ATTEND Otolaryngology
DX: R90.82 White matter disease, unspecified (principal); R42 Dizziness and giddiness; Z87.39 Personal history of other diseases of the musculoskeletal system and connective tissue
CPT/HCPCS: 70553; A9585

== ENCOUNTER → 2022-12-05 | Outpatient (CLI) | payer MEDICARE, OTHER ==
--- NOTE | 2022-12-06 16:23 | MM ---
Reason for Exam: Screening (asymptomatic). Last screening mammogram was performed 12 month(s) ago. Patient History: Menarche at age 9. Patient has no children. Left ovary removed at age 38. Right ovary removed at age 38. Hysterectomy at age 38. Postmenopausal. Estrogen for 4 years from age 38 until age 42. Cyst Aspiration on the Right side. 12/18/2001, Benign Excisional Biopsy on the right side. Paternal aunt had breast cancer, age 45. Risk Values: Tegan 5 year model risk: 2.0%. NCI Lifetime model risk: 10.7%. Prior Study Comparison: 07/28/2019 Bilateral Screening Mammogram, [facility]. 08/17/2020 Bilateral Diagnostic Mammogram, [facility]. 11/16/2021 Bilateral MG 3D screening mammo w/cad, [facility]. Tissue Density: There are scattered fibroglandular densities. Findings: Analyzed By CAD. There appears symmetrical and stable. No significant interval change is evident No suspicious groups of microcalcifications, spiculated or lobular masses, architectural distortion or other secondary signs of malignancy are mammographically apparent. Overall Assessment: Benign, BI-RAD 2 Management: Screening Mammogram of both breasts in 1 year. A negative mammogram report should not preclude additional follow up of suspicious palpable abnormalities. Patient should continue monthly self breast exam. A clinical breast exam by your physician is recommended on an annual basis and results should be correlated with mammographic findings. Electronically signed and approved by: Max Camarillo D.O. Radiologis
== END | disposition home or self-care (01) ==
LOC: RADMAMWWP 12:54
PROVIDERS: ATTEND Family Medicine
DX: Z12.31 Encounter for screening mammogram for malignant neoplasm of breast (principal); Z78.0 Asymptomatic menopausal state; Z80.3 Family history of malignant neoplasm of breast
CPT/HCPCS: 77063; 77067

== ENCOUNTER → 2024-01-28 | Outpatient (CLI) | payer MEDICARE, OTHER | END | disposition home or self-care (01) | LOC: LABPRL 09:30 | PROVIDERS: ATTEND Family Medicine | DX: Z13.29 Encounter for screening for other suspected endocrine disorder (principal); Z11.59 Encounter for screening for other viral diseases; F33.9 Major depressive disorder, recurrent, unspecified; F41.9 Anxiety disorder, unspecified; K21.00 Gastro-esophageal reflux disease with esophagitis, without bleeding; E78.5 Hyperlipidemia, unspecified; G43.009 Migraine without aura, not intractable, without status migrainosus; G60.9 Hereditary and idiopathic neuropathy, unspecified; G70.00 Myasthenia gravis without (acute) exacerbation; R73.03 Prediabetes | CPT/HCPCS: 80053; 80061; 82043; 82306; 82570; 83036; 84443; 85025; 86803 ==

== ENCOUNTER → 2024-03-14 | Outpatient (CLI) | payer MEDICARE ==
--- NOTE | 2024-03-14 18:19 | BD ---
EXAMINATION TYPE: Axial Bone Density DATE OF EXAM: 03/14/2024 CLINICAL HISTORY: 58 years old Female. ICD-10 CODE: Z78.0 ASYMPTOMATIC MENOPAUSAL STA Height: 61 Weight: 147.8 FRAX RISK QUESTIONS: Alcohol (3 or more units per day): no Family History (Parent hip fracture): no Glucocorticoids (More than 3mos): no (Ex: prednisone, prednisolone, methylprednisolone, dexamethasone, and hydrocortisone). History of Fracture in Adulthood: foot Secondary Osteoporosis: 1. Type 1 Diabetes: no 2. Hyperthyroidism: no 3. Menopause before 45: yes 4. Malnutrition: no 5. Chronic liver disease: no Rheumatoid Arthritis: no Current Tobacco Use: no RISK FACTORS HISTORY OF: Hip Fracture (Right/Left): no Spine Fracture: no History of Wrist Fracture: no Surgery to Spine/Hip(right/left)/Wrist (right/left): no MEDICATIONS: Thyroid Medications: Levothyroxine How Long: since age 16 Osteoporosis Medications: no EXAM MEASUREMENTS: Bone mineral densitometry was performed using the Payward System. Bone mineral density as measured about the Lumbar spine is: ----- L1-L4(G/cm2): 1.402 T Score Values are as follows: ----- L1: -0.8 ----- L2: 1.9 ----- L3: 4.0 ----- L4: 1.7 ----- L1-L4: 1.9 Z Score Values are as follows: ----- L1: 0.4 ----- L2: 3.1 ----- L3: 5.2 ----- L4: 2.9 ----- L1-L4: 3.0 Bone mineral density has: decreased -0.9 % since study of: 2006 Bone mineral density about the R hip (g/cm2): 0.905 Bone mineral density about the L hip (g/cm2): 0.905 T Score values are as follows: -----R Neck: -1.6 -----L Neck: -1.6 -----R Total: -0.8 -----L Total: -0.7 Z Score values are as follows: -----R Neck: -0.4 -----L Neck: -0.4 -----R Total: 0.1 -----L Total: 0.2 Bone mineral density has: decreased -14.5% since study of: 2006 FRAX%s: The graph provided illustrates a 8.6% chance for a major osteoporotic fx and a 0.8% chance fo r the hips probability for fx in 10 years time. IMPRESSION: Osteopenia (T Score between -2.5 and -1). There is slightly increased risk of fracture and the patient may be considered for treatment. Re-Screen 2-5 years. NOTE: T-SCORE=SD OF THE YOUNG ADULT MEAN. [facility], , 03/14/2024 6:17 PM
--- NOTE | 2024-03-17 14:49 | MM ---
Reason for Exam: Screening (asymptomatic). Last mammogram was performed 1 year(s) and 3 month(s) ago. Patient History: Menarche at age 9. Patient has no children. Left ovary removed at age 38. Right ovary removed at age 38. Hysterectomy at age 38. Postmenopausal. Estrogen for 4 years from age 38 until age 42. Cyst Aspiration on the Right side. 12/18/2001, Benign Excisional Biopsy on the right side. Paternal aunt had breast cancer, age 45. Risk Values: Tegan 5 year model risk: 2.1%. NCI Lifetime model risk: 10.4%. Prior Study Comparison: 08/17/2020 Bilateral Diagnostic Mammogram, [facility]. 11/16/2021 Bilateral MG 3D screening mammo w/cad, [facility]. 12/05/2022 Bilateral MG 3D screening mammo w/cad, [facility]. Tissue Density: There are scattered areas of fibroglandular density. Findings: Analyzed By CAD. The pattern is symmetrical. Stable. No significant interval change is evident. Punctate calcifications within the right breast. No suspicious groups of microcalcifications, spiculated or lobular masses, architectural distortion or other secondary signs of malignancy are mammographically apparent. Overall Assessment: Benign, BI-RAD 2 Management: Screening Mammogram of both breasts in 1 year. A negative mammogram report should not preclude additional follow up of suspicious palpable abnormalities. Patient should continue monthly self breast exam. A clinical breast exam by your physician is recommended on an annual basis and results should be correlated with mammographic findings. Note on Tegan scores and lifetime risk: 1. A Tegan score greater than 3% is considered moderate risk. If this is the case, consider specialist referral to assess eligibility for a risk reducing agent. 2. If overall lifetime risk for the development of breast cancer is 20% or higher, the patient may qualify for future screening with alternating mammogram and breast MRI. [facility], , 03/16/2024 2:09 PM. Electronically signed and approved by: Max Camarillo D.O. Radiologis
== END | disposition home or self-care (01) ==
LOC: RADMAMWWP 15:06
PROVIDERS: ATTEND Family Medicine
DX: Z12.31 Encounter for screening mammogram for malignant neoplasm of breast (principal); Z78.0 Asymptomatic menopausal state; Z90.722 Acquired absence of ovaries, bilateral; Z80.3 Family history of malignant neoplasm of breast; R92.323 Mammographic fibroglandular density, bilateral breasts; M81.8 Other osteoporosis without current pathological fracture
CPT/HCPCS: 77063; 77067; 77080

== ENCOUNTER → 2024-07-01 | Outpatient (CLI) | payer MEDICARE ==
[2024-07-01 09:52] LABS: African American GFR (CKD) 74 (>60 ml/min/1.73 sqM); Blood Urea Nitrogen 36 mg/dL (7-17); Non-African American GFR(CKD) 64 (>60 ml/min/1.73 sqM)
--- NOTE | 2024-07-01 11:36 | CT ---
EXAMINATION TYPE: CT abdomen pelvis w con DATE OF EXAM: 07/01/2024 11:07 AM COMPARISON: None. CLINICAL INDICATION: Female, 59 years old with history of R10.813 RLQ pain, RLQ pain TECHNIQUE: Axial images were obtained from above the diaphragm to the pubic rami in the axial plane a t 5 mm thick sections. Reconstructed images are reviewed on the computer in the coronal plane. CONTRAST: 100ml mL of Isovue 300. Study performed with Oral Contrast DLP: 794.8 mGycm, Automated exposure control for dose reduction was used. FINDINGS: Limited CT sections are obtained the lung bases. The lung bases are clear. CT ABDOMEN: Liver: Normal Spleen: Normal Pancreas: Normal Adrenal glands: The adrenal glands are normal. Gallbladder: Surgically absent Kidneys: No masses are evident. No hydronephrosis is present. No cysts are present. Delayed images were obtained through the kidneys, which remain unremarkable. Aorta: Normal Inferior vena cava: Normal. CT PELVIS: Loops of bowel within the abdomen and pelvis are normal. Fecal debris is throughout the colon. Some c onstipation should be considered There are loops of bowel which are incompletely distended or lack oral contrast limiting their evaluation. Appendix: Minimal visualization of the appendix may be present at its insertion on the cecum. Appendi x is not otherwise identified. However, no dilated tubular structure or adjacent inflammatory changes evident. Urinary bladder: Normal. Genitourinary structures: Uterus and ovaries are not identified. Osseous structures: No suspicious lytic or sclerotic lesions. IMPRESSION: 1. No suspicious abnormality to account for right lower quadrant pain. 2. Minimal visualization of normal-appearing appendix. Clinical management of any suspected appendici tis will be required. 3. Fecal retention throughout the nondilated colon. [facility], , 07/01/2024 11:33 AM
== END | disposition home or self-care (01) ==
LOC: RADCTMAIN 08:55
PROVIDERS: ATTEND Family Medicine
DX: R10.813 Right lower quadrant abdominal tenderness (principal); R30.0 Dysuria; K59.00 Constipation, unspecified
CPT/HCPCS: 82565; 84520; 74177; 36415; Q9967